=== PATIENT | female | born 1975 | race Caucasian/White ===

== ENCOUNTER 2016-10-18 11:00 | Emergency (ER) | payer OTHER ==
[~2016-10-18] VITALS: Ht 162.6 cm; Wt 83.2 kg
[~2016-10-18 11:00] MED LIST: ACET500T68 PO; CITA20TA5 PO; HYDR-971 PO; NAPR500T3 PO; ONDA4TAB10 SL; SUMA50TA3 PO; TRAZ50TA15 PO
--- NOTE | 2016-10-18 11:18 | PHYS DOC ---
Past History Past Medical History: Anxiety, Depression, Migraines, Other Past Surgical History: Other Smoking: Less than 1pk/day Alcohol Use: None Drug Use: Marijuana, Methamphetamine Adult General Chief Complaint Chief Complaint: ABDOMINAL PAIN HPI HPI Patient is a 41-year-old female who presents with abdominal pain nausea vomiting diarrhea for the past 3 days. Patient denies any fevers. Patient denies any chest pain or shortness of breath. Patient states her abdominal pain is epigastric and right upper quadrant pain. Patient denies any previous abdominal surgeries. Patient denies that she is . LMP was last month. Patient is actively vomiting in the emergency room. Patient has no other complaints. Pertinent exam findings TTP right upper quadrant with rebound tenderness and TTP to epigastric ED course: Patient was seen and evaluated upon arrival to the emergency room CBC, CMP, lipase, ultrasound the right upper quadrant, UA and urine Margie ordered. Pt was given formula grams of Zofran and 50 mg of fentanyl and 1 L normal saline bolus. 1248: Discussed lab results and ultrasound results with the patient who is feeling much better. Explained to the patient that she could still have gallbladder dysfunction or an ulcer and recommended follow up with PCP in one to 2 days for further evaluation. Recommended possible outpatient HIDA scan and upper EGD to further evaluate her right upper quadrant epigastric pain. Patient is comfortable being discharged home. Pertinent findings: Ultrasound gallbladder unremarkable MMD: After reviewing the chart, CBC/history of present illness/PHM, lab results, radiological results I do not believe the patient has intra-abdominal emergency or urgent further workup and admission at this time. Given the patient's right upper quadrant pain with unremarkable lab work and normal ultrasound I do not think a CT scan of abdomen and pelvis is warranted at this time. I recommend the patient follow up with her PCP for outpatient HIDA scan and possibly EGD. Patient is comfortable going home. On reexamination patient feels much better. Patient is stable for discharge. Additional verbal discharge instructions were provided to the patient and that if symptoms get worse or any new symptoms arise that are worrisome to the patient she is to return to the emergency room immediately. Review of Systems Review of Systems Constitutional: Denies fever or chills [] Eyes: Denies change in visual acuity, redness, or eye pain [] HENT: Denies nasal congestion or sore throat [] Respiratory: Denies cough or shortness of breath [] Cardiovascular: No additional information not addressed in HPI [] GI: Abdominal pain positive N/V : Denies dysuria or hematuria [] Musculoskeletal: Denies back pain or joint pain [] Integument: Denies rash or skin lesions [] Allergies Allergies Allergies Coded Allergies Type Severity Reaction Last Updated Verified doxycycline Allergy Severe Hives 11/27/15 Yes aspirin Allergy Intermediate hives 07/23/15 Yes ibuprofen Allergy Intermediate hives 07/23/15 Yes Physical Exam Physical Exam Constitutional: Well developed, well nourished, no acute distress, non-toxic appearance. [] HENT: Normocephalic, atraumatic, bilateral external ears normal, oropharynx moist, no oral exudates, nose normal. [] Eyes: PERRLA, EOMI, conjunctiva normal, no discharge. [] Neck: Normal range of motion, no tenderness, supple, no stridor. [] Cardiovascular:Heart rate regular rhythm, no murmur [] Lungs & Thorax: Bilateral breath sounds clear to auscultation [] Abdomen: Bowel sounds normal, soft, positive TTP to right upper quadrant and epigastric with rebound tenderness, no masses, no pulsatile masses. [] Skin: Warm, dry, no erythema, no rash. [] Back: No tenderness, no CVA tenderness. [] Extremities: No tenderness, no cyanosis, no clubbing, ROM intact, no edema. [] Neurologic: Alert and oriented X 3, normal motor function, normal sensory function, no focal deficits noted. [] Psychologic: Affect normal, judgement normal, mood normal. [] Current Patient Data Lab Results Laboratory Tests Test 10/18/16 11:24 10/18/16 11:26 White Blood Count 8.9 x10^3/uL Red Blood Count 4.68 x10^6/uL Hemoglobin 14.1 g/dL Hematocrit 41.2 % Mean Corpuscular Volume 88 fL Mean Corpuscular Hemoglobin 30 pg Mean Corpuscular Hemoglobin Concent 34 g/dL Red Cell Distribution Width 13.5 % Platelet Count 305 x10^3/uL Neutrophils (%) (Auto) 62 % Lymphocytes (%) (Auto) 30 % Monocytes (%) (Auto) 7 % Eosinophils (%) (Auto) 1 % Basophils (%) (Auto) 0 % Neutrophils # (Auto) 5.6 x10^3uL Lymphocytes # (Auto) 2.7 x10^3/uL Monocytes # (Auto) 0.6 x10^3/uL Eosinophils # (Auto) 0.1 x10^3/uL Basophils # (Auto) 0.0 x10^3/uL Sodium Level 138 mmol/L Potassium Level 3.8 mmol/L Chloride Level 102 mmol/L Carbon Dioxide Level 26 mmol/L Anion Gap 10 Blood Urea Nitrogen 15 mg/dL Creatinine 1.0 mg/dL Estimated GFR (Cockcroft-Gault) 61.7 BUN/Creatinine Ratio 15 Glucose Level 112 mg/dL Calcium Level 8.5 mg/dL Total Bilirubin 0.2 mg/dL Aspartate Amino Transf (AST/SGOT) 16 U/L Alanine Aminotransferase (ALT/SGPT) 21 U/L Alkaline Phosphatase 67 U/L Total Protein 7.6 g/dL Albumin 3.8 g/dL Albumin/Globulin Ratio 1.0 Lipase 110 U/L Bedside Urine HCG, Qualitative hcg negative Current Medications Medications (Trade) Dose Ordered Sig/Luis Manuel Route PRN Reason Start Time Stop Time Status Last Admin Dose Admin Sodium Chloride 1,000 ml @ 1,000 mls/hr 1X ONCE IV 10/18/16 11:30 10/18/16 12:29 10/18/16 11:30 Ondansetron HCl (Zofran) 4 mg 1X ONCE IV 10/18/16 11:30 10/18/16 11:31 DC 10/18/16 11:30 Fentanyl Citrate (Fentanyl 2ml Vial) 50 mcg 1X ONCE IM 10/18/16 11:30 10/18/16 11:31 DC 10/18/16 11:30 Fentanyl Citrate (Fentanyl 2ml Vial) 50 mcg 1X ONCE IM 10/18/16 12:30 10/18/16 12:31 Metoclopramide HCl (Reglan) 10 mg 1X ONCE IV 10/18/16 12:30 10/18/16 12:31 EKG EKG [] Radiology/Procedures Radiology/Procedures Laboratory Tests Test 10/18/16 11:24 10/18/16 11:26 White Blood Count 8.9 x10^3/uL (4.0-11.0) Red Blood Count 4.68 x10^6/uL (3.50-5.40) Hemoglobin 14.1 g/dL (12.0-15.5) Hematocrit 41.2 % (36.0-47.0) Mean Corpuscular Volume 88 fL (79-100) Mean Corpuscular Hemoglobin 30 pg (25-35) Mean Corpuscular Hemoglobin Concent 34 g/dL (31-37) Red Cell Distribution Width 13.5 % (11.5-14.5) Platelet Count 305 x10^3/uL (140-400) Neutrophils (%) (Auto) 62 % (31-73) Lymphocytes (%) (Auto) 30 % (24-48) Monocytes (%) (Auto) 7 % (0-9) Eosinophils (%) (Auto) 1 % (0-3) Basophils (%) (Auto) 0 % (0-3) Neutrophils # (Auto) 5.6 x10^3uL (1.8-7.7) Lymphocytes # (Auto) 2.7 x10^3/uL (1.0-4.8) Monocytes # (Auto) 0.6 x10^3/uL (0.0-1.1) Eosinophils # (Auto) 0.1 x10^3/uL (0.0-0.7) Basophils # (Auto) 0.0 x10^3/uL (0.0-0.2) Sodium Level 138 mmol/L (136-145) Potassium Level 3.8 mmol/L (3.5-5.1) Chloride Level 102 mmol/L (98-107) Carbon Dioxide Level 26 mmol/L (21-32) Anion Gap 10 (6-14) Blood Urea Nitrogen 15 mg/dL (7-20) Creatinine 1.0 mg/dL (0.6-1.0) Estimated GFR (Cockcroft-Gault) 61.7 BUN/Creatinine Ratio 15 (6-20) Glucose Level 112 mg/dL (70-99) Calcium Level 8.5 mg/dL (8.5-10.1) Total Bilirubin 0.2 mg/dL (0.2-1.0) Aspartate Amino Transf (AST/SGOT) 16 U/L (15-37) Alanine Aminotransferase (ALT/SGPT) 21 U/L (14-59) Alkaline Phosphatase 67 U/L (46-116) Total Protein 7.6 g/dL (6.4-8.2) Albumin 3.8 g/dL (3.4-5.0) Albumin/Globulin Ratio 1.0 (1.0-1.7) Lipase 110 U/L (73-393) Bedside Urine HCG, Qualitative hcg negative (Negative) Laboratory Tests Test 10/18/16 11:24 10/18/16 11:26 White Blood Count 8.9 x10^3/uL (4.0-11.0) Red Blood Count 4.68 x10^6/uL (3.50-5.40) Hemoglobin 14.1 g/dL (12.0-15.5) Hematocrit 41.2 % (36.0-47.0) Mean Corpuscular Volume 88 fL (79-100) Mean Corpuscular Hemoglobin 30 pg (25-35) Mean Corpuscular Hemoglobin Concent 34 g/dL (31-37) Red Cell Distribution Width 13.5 % (11.5-14.5) Platelet Count 305 x10^3/uL (140-400) Neutrophils (%) (Auto) 62 % (31-73) Lymphocytes (%) (Auto) 30 % (24-48) Monocytes (%) (Auto) 7 % (0-9) Eosinophils (%) (Auto) 1 % (0-3) Basophils (%) (Auto) 0 % (0-3) Neutrophils # (Auto) 5.6 x10^3uL (1.8-7.7) Lymphocytes # (Auto) 2.7 x10^3/uL (1.0-4.8) Monocytes # (Auto) 0.6 x10^3/uL (0.0-1.1) Eosinophils # (Auto) 0.1 x10^3/uL (0.0-0.7) Basophils # (Auto) 0.0 x10^3/uL (0.0-0.2) Sodium Level 138 mmol/L (136-145) Potassium Level 3.8 mmol/L (3.5-5.1) Chloride Level 102 mmol/L (98-107) Carbon Dioxide Level 26 mmol/L (21-32) Anion Gap 10 (6-14) Blood Urea Nitrogen 15 mg/dL (7-20) Creatinine 1.0 mg/dL (0.6-1.0) Estimated GFR (Cockcroft-Gault) 61.7 BUN/Creatinine Ratio 15 (6-20) Glucose Level 112 mg/dL (70-99) Calcium Level 8.5 mg/dL (8.5-10.1) Total Bilirubin 0.2 mg/dL (0.2-1.0) Aspartate Amino Transf (AST/SGOT) 16 U/L (15-37) Alanine Aminotransferase (ALT/SGPT) 21 U/L (14-59) Alkaline Phosphatase 67 U/L (46-116) Total Protein 7.6 g/dL (6.4-8.2) Albumin 3.8 g/dL (3.4-5.0) Albumin/Globulin Ratio 1.0 (1.0-1.7) Lipase 110 U/L (73-393) Bedside Urine HCG, Qualitative hcg negative (Negative) Right upper quadrant abdominal ultrasound, 10/18/2016: History: Right upper quadrant pain and vomiting The gallbladder is within normal limits in size. There is no sonographic evidence of cholelithiasis. The gallbladder wall is not thickened. No bile duct dilatation is seen. The visualized portions of the liver, pancreas and right kidney are unremarkable. IMPRESSION: No significant gallbladder abnormality is detected. [] Course & Med Decision Making Course & Med Decision Making Pertinent Labs and Imaging studies reviewed. (See chart for details) [] Dragon Disclaimer Dragon Disclaimer This chart was dictated in whole or in part using Voice Recognition software in a busy, high-work load, and often noisy Emergency Department environment. It may contain unintended and wholly unrecognized errors or omissions. Departure Departure: Disposition: 01 HOME, SELF-CARE Condition: IMPROVED Referrals: PCP,NO (PCP) CHARO MUSE MD Patient Instructions: Abdominal Pain, Biliary Colic Additional Instructions: Least follow-up her family doctor in one to 2 days to discuss the need for HIDA scan and upper EGD. Scripts Ondansetron (ZOFRAN ODT) 4 Mg Tab.rapdis 1 TAB SL Q8HRS, #10 TAB Prov: NADINE STARK DO 10/18/16 NADINE STARK DO October 18, 2016 11:17
[2016-10-18] MEDS ORDERED: fentaNYL PF 100 MCG/2 ML VIAL IM ONE ×2 (11:30→12:30)
[2016-10-18] MEDS ORDERED: ONDANSETRON PF 4 MG/2 ML VIAL. IV ONE (11:30)
[2016-10-18] MEDS ORDERED: IV NORMAL SALINE 1,000ML 1,000 ML IV ONE (11:30)
[2016-10-18 11:40] LABS: BASO % 0 % (0-3); EOS # 0.1 x10^3/uL (0.0-0.7); EOS % 1 % (0-3); HEMATOCRIT 41.2 % (36.0-47.0); HEMOGLOBIN 14.1 g/dL (12.0-15.5); LYMPH # 2.7 x10^3/uL (1.0-4.8); LYMPH % 30 % (24-48); MEAN CORPUSCULAR HEMOGLOBIN 30 pg (25-35); MEAN CORPUSCULAR HGB CONC 34 g/dL (31-37); MEAN CORPUSCULAR VOLUME 88 fL (79-100); MONO # 0.6 x10^3/uL (0.0-1.1); MONO % 7 % (0-9); NEUT # 5.6 x10^3uL (1.8-7.7); NEUT % 62 % (31-73); PLATELET COUNT 305 x10^3/uL (140-400); RED BLOOD COUNT 4.68 x10^6/uL (3.50-5.40); RED CELL DISTRIBUTION WIDTH 13.5 % (11.5-14.5); WHITE BLOOD COUNT 8.9 x10^3/uL (4.0-11.0)
[2016-10-18 11:52] LABS: ALBUMIN 3.8 g/dL (3.4-5.0); CALCIUM 8.5 mg/dL (8.5-10.1); GFR 61.7; POTASSIUM 3.8 mmol/L (3.5-5.1); TOTAL BILIRUBIN 0.2 mg/dL (0.2-1.0); TOTAL PROTEIN 7.6 g/dL (6.4-8.2)
--- NOTE | 2016-10-18 12:08 | RAD ---
Right upper quadrant abdominal ultrasound, 10/18/2016: History: Right upper quadrant pain and vomiting The gallbladder is within normal limits in size. There is no sonographic evidence of cholelithiasis. The gallbladder wall is not thickened. No bile duct dilatation is seen. The visualized portions of the liver, pancreas and right kidney are unremarkable. IMPRESSION: No significant gallbladder abnormality is detected.
[2016-10-18] MEDS ORDERED: METOCLOPRAMIDE HCL 10 MG/2 ML VIAL. IV ONE (12:30)
[2016-10-18] MEDS ORDERED: ONDA4TAB10 SL (12:55)
[2016-10-18 13:19] VITALS: BP 134/65
[2016-10-18 14:50] LABS: BILIRUBIN,URINE NEG (NEG); CLARITY,URINE CLOUDY; COLOR,URINE YELLOW; NITRITE,URINE NEG (NEG); UROBILINOGEN,URINE 1 mg/dL (0.2 mg/dL)
[2016-10-18 14:51] LABS: GLUCOSE,URINE NEG (NEG)
== END 2016-10-18 13:20 | disposition home or self-care (01) ==
LOC: ER 11:00
DX: K80.50 Calculus of bile duct without cholangitis or cholecystitis without obstruction (principal); R19.7 Diarrhea, unspecified; F41.9 Anxiety disorder, unspecified; F32.9 Major depressive disorder, single episode, unspecified; F17.200 Nicotine dependence, unspecified, uncomplicated; F12.10 Cannabis abuse, uncomplicated; F15.10 Other stimulant abuse, uncomplicated; G43.909 Migraine, unspecified, not intractable, without status migrainosus; Z88.1 Allergy status to other antibiotic agents; Z88.6 Allergy status to analgesic agent
CPT/HCPCS: 36415; 76705; 80053; 81003; 81025; 83690; 85027; 96361; 96372; 96374; 99285; J2405; J2765; J3010; J7030

== ENCOUNTER → 2016-12-20 | Outpatient (CLI) | payer OTHER ==
--- NOTE | 2016-12-20 11:28 | RAD ---
Cervical spine, 2 views, 12/20/2016: History: Neck pain, possible cervical mass There is slight reversal of the normal cervical lordosis. No fracture or destructive bony lesion is seen. The intervertebral disc spaces are well preserved. There are mild degenerative changes involving scattered facet joints bilaterally. The prevertebral soft tissues are unremarkable. IMPRESSION: 1. Mild degenerative change. 2. Slight reversal of the normal cervical lordosis. 3. No acute bony abnormality is detected.
== END | disposition home or self-care (01) ==
LOC: DXRADRC 10:26
PROVIDERS: ATTEND General Practice
DX: N88.8 Other specified noninflammatory disorders of cervix uteri (principal); M47.892 Other spondylosis, cervical region
CPT/HCPCS: 72040

== ENCOUNTER 2017-02-28 21:33 | Emergency (ER) | payer OTHER ==
[~2017-02-28] VITALS: Ht 162.6 cm; Wt 78.4 kg
[~2017-02-28 21:33] MED LIST changes: -NAPR500T3 PO; +NAPR500T4 PO
--- NOTE | 2017-02-28 22:27 | PHYS DOC ---
Past History Past Medical History: No Pertinent History Past Surgical History: No Surgical History Smoking: Less than 1pk/day Alcohol Use: None Drug Use: None Adult General Chief Complaint Chief Complaint: GROIN PAIN [facility] HPI Patient is a 41 year old female who presents with right inguinal pain. She states it started on Sunday she tried to be seen and and [facility] but got frustrated and left. She states pains worse when she tries to walk. She states that she lay still there is no pain or discomfort. She denies any nausea vomiting or leg pain. She points right triangular canals states she feels a bump. She states she's been taking Tylenol without any relief. Review of Systems Review of Systems Constitutional: Denies fever or chills [] Eyes: Denies change in visual acuity, redness, or eye pain [] HENT: Denies nasal congestion or sore throat [] Respiratory: Denies cough or shortness of breath [] Cardiovascular: No additional information not addressed in HPI [] GI: Denies abdominal pain, nausea, vomiting, bloody stools or diarrhea [] : Denies dysuria or hematuria [] Musculoskeletal: Denies back pain or joint pain [] Integument: Denies rash or skin lesions [] Neurologic: Denies headache, focal weakness or sensory changes [] Endocrine: Denies polyuria or polydipsia [] Allergies Allergies Allergies Coded Allergies Type Severity Reaction Last Updated Verified doxycycline Allergy Severe Hives 11/27/15 Yes aspirin Allergy Intermediate hives 07/23/15 Yes ibuprofen Allergy Intermediate hives 07/23/15 Yes Physical Exam Physical Exam Constitutional: Well developed, well nourished, no acute distress, non-toxic appearance. [] HENT: Normocephalic, atraumatic, bilateral external ears normal, oropharynx moist, no oral exudates, nose normal. [] Eyes: PERRLA, EOMI, conjunctiva normal, no discharge. [] Neck: Normal range of motion, no tenderness, supple, no stridor. [] Cardiovascular:Heart rate regular rhythm, no murmur [] Lungs & Thorax: Bilateral breath sounds clear to auscultation [] Abdomen: Bowel sounds normal, soft, no tenderness, no masses, no pulsatile masses. [] Skin: Warm, dry, no erythema, no rash. [] Back: No tenderness, no CVA tenderness. [] Extremities: Tender to palpation over the right inguinal canal, no masses appreciated, dorsal pedis pulse 2+ in the right lower extremity, strength 5 out of 5 with flexion and extension of the hip, knee, ankle, no tenderness within the hip joint itself with passive range of motion and internal/external rotation , no cyanosis, no clubbing, ROM intact, no edema. [] Neurologic: Alert and oriented X 3, normal motor function, normal sensory function, no focal deficits noted. [] Psychologic: Affect normal, judgement normal, mood normal. [] EKG EKG [] Radiology/Procedures Radiology/Procedures [address] [address] IMAGING REPORT Signed PATIENT: OFE JOSEPH ACCOUNT: [id number] : 1975 LOCATION: ER AGE: 41 SEX: F EXAM STATUS: DEP ER ORD. PHYSICIAN: ORAL MONTOYA MD REASON: pain over right inginual area PROCEDURE: VENOUS LOWER EXTREMITY RIGHT Right lower extremity venous Doppler: Reason for examination: Right groin pain. The right lower extremity venous system was evaluated from the common femoral and greater saphenous veins distally to the calf veins with grayscale imaging, color-flow imaging and spectral analysis. There appears to be normal blood flow without deep venous thrombosis. There is normal response of the venous system to compression and augmentation. IMPRESSION: No deep venous thrombosis evident in the right lower extremity. Electronically signed by: Sowmya Gulilen MD (03/01/2017 1:07 AM) [facility] [id number] DICTATED AND SIGNED BY: SOWMYA GUILLEN MD DATE: 03/01/17 0106 CC: ORAL MONTOYA MD; CINDY MORALES MD ~ Impressions: Right groin pain Course & Med Decision Making Course & Med Decision Making Pertinent Labs and Imaging studies reviewed. (See chart for details) Preliminary report from the os intact shows no DVT and no lymphadenopathy. We' ll treat urinary tract infection with Bactrim and start a dose here and it for 5 days. Perhaps she does have a cellulitis and some lymph nodes that irritated or other concerns that Bactrim would help with. She's to follow-up with her primary care physician, return precautions given. She also being discharged with 14 tablets of Berlin. She is instructed not to drive or drink alcohol while taking this medicine as it can impair judgment and make her sleepy. Dragon Disclaimer Dragon Disclaimer This chart was dictated in whole or in part using Voice Recognition software in a busy, high-work load, and often noisy Emergency Department environment. It may contain unintended and wholly unrecognized errors or omissions. Departure Departure: Impression: Primary Impression: Right groin pain Disposition: HOME, SELF-CARE Condition: STABLE Referrals: CINDY MORALES MD (PCP) Patient Instructions: Groin Strain Additional Instructions: I'm not sure why you're having pain in your groin. The preliminary report from the ultrasound did not show any kind of blood clots. It also did not show any enlarged lymph nodes or other concerns. You have a bladder infection which could cause some discomfort. You will need take antibiotics for the next 3 days. You can take Berlin which is a narcotic pain medicine as needed for the next few days. Her pain should get better if it does not please return back to ER or follow-up with your primary care physician. Scripts Hydrocodone Bit/Acetaminophen (NORCO 5-325 TABLET) 1 Each Tablet 1-2 TAB PO PRN Q6HRS Y for PAIN, #14 TAB 0 Refills Prov: ORAL MONTOYA MD 03/01/17 Sulfamethoxazole/Trimethoprim (BACTRIM DS TABLET) 1 Each Tablet 1 TAB PO BID, #10 TAB Prov: ORAL MONTOYA MD 03/01/17 ORAL MONTOYA MD Feb 28, 2017 22:27
[2017-02-28] MEDS ORDERED: HYDROcodone/APAP 5/325MG 1 TAB TABLET PO ONE (23:30)
[2017-02-28 23:46] LABS: BILIRUBIN,URINE NEG (NEG); CLARITY,URINE HAZY; COLOR,URINE STRAW; GLUCOSE,URINE NEG (NEG); NITRITE,URINE NEG (NEG); RBC,URINE OCC /HPF (0-2); UROBILINOGEN,URINE 0.2 mg/dL (0.2 mg/dL)
[2017-02-28 23:47] LABS: BACTERIA,URINE FEW /HPF (0-FEW); SQUAMOUS EPITHELIAL CELL,UR MOD /LPF; WBC,URINE OCC /HPF (0-4)
[2017-03-01] MEDS ORDERED: SULF1TAB24 PO (00:16)
[2017-03-01] MEDS ORDERED: HYDR-971 PO (00:16)
[2017-03-01] MEDS ORDERED: SMZ/TMP 800/160MG TABLET. PO ONE ×2 (00:19→00:30)
[2017-03-01 00:20] VITALS: BP 128/66
--- NOTE | 2017-03-01 01:10 | RAD ---
Right lower extremity venous Doppler: Reason for examination: Right groin pain. The right lower extremity venous system was evaluated from the common femoral and greater saphenous veins distally to the calf veins with grayscale imaging, color-flow imaging and spectral analysis. There appears to be normal blood flow without deep venous thrombosis. There is normal response of the venous system to compression and augmentation. IMPRESSION: No deep venous thrombosis evident in the right lower extremity. Electronically signed by: Sowmya Belcher MD (03/01/2017 1:07 AM) [facility]
== END 2017-03-01 00:24 | disposition home or self-care (01) ==
LOC: ER 21:33
DX: R10.31 Right lower quadrant pain (principal); N39.0 Urinary tract infection, site not specified; F17.200 Nicotine dependence, unspecified, uncomplicated; Z88.1 Allergy status to other antibiotic agents; Z88.6 Allergy status to analgesic agent
CPT/HCPCS: 81001; 81025; 93971; 99285-25

== ENCOUNTER 2017-10-24 18:32 | Emergency (ER) | payer SELFPAY ==
[~2017-10-24] VITALS: Ht 160 cm; Wt 63.5 kg
[2017-10-24 18:32] VITALS: BP 111/71
[~2017-10-24 18:32] MED LIST changes: -CITA20TA5 PO; +CITA20TA6 PO; +NAPR-514 PO; -NAPR500T4 PO; +SULF1TAB24 PO
[2017-10-24] MEDS ORDERED: AZIT500T PO (18:47)
[2017-10-24] MEDS ORDERED: HYDR15SO4 PO (18:49)
[2017-10-24] MEDS ORDERED: BENZ100C PO (18:49)
--- NOTE | 2017-10-24 18:59 | ED.ADGEN ---
Past History Past Medical History: Anxiety, Depression, Other Past Surgical History: No Surgical History Smoking: Less than 1pk/day Alcohol Use: None Drug Use: Marijuana Adult General [facility] HPI Patient is a 42 year old female who presents with cough. Patient has had some upper respiratory symptoms over the last 2 days. She has had a predominantly a cough. She does have some post tussive emesis as well. She has not had a fever. She complains of bilateral ear pain. She had an episode at work today when she was coughing so hard that she throughout. Her employer made her leave work and come to the emergency room. She is otherwise healthy. She has not taken any over -the-counter medications for symptom relief. Review of Systems Review of Systems Constitutional: Denies fever or chills Eyes: Denies change in visual acuity, redness, or eye pain HENT: + nasal congestion and bilateral ear pain, popping Respiratory: Denies cough Cardiovascular: No additional information not addressed in HPI GI: Denies abdominal pain, nausea : Denies dysuria or hematuria Musculoskeletal: Denies back pain Integument: Denies rash or skin lesions Neurologic: Denies headache, focal weakness or sensory changes Endocrine: Denies polyuria or polydipsia All other systems were reviewed and found to be within normal limits, except as documented in this note. Allergies Allergies Allergies Coded Allergies Type Severity Reaction Last Updated Verified doxycycline Allergy Severe Hives 11/27/15 Yes aspirin Allergy Intermediate hives 07/23/15 Yes ibuprofen Allergy Intermediate hives 07/23/15 Yes Physical Exam Physical Exam Constitutional: Well developed, well nourished, no acute distress, non-toxic appearance. HENT: Normocephalic, atraumatic, bilateral external ears normal, oropharynx moist, no oral exudates, nose normal. dull, erythematous right TM. Left is not visulalized 2/2 cerumen impaction Eyes: PERRLA, EOMI, conjunctiva normal Neck: Normal range of motion, no tenderness Cardiovascular:Heart rate regular rhythm, no murmur Lungs & Thorax: Bilateral breath sounds clear to auscultation Abdomen: Bowel sounds normal, soft, no tenderness, no masses Skin: Warm, dry, no erythema, no rash. Back: No tenderness, no CVA tenderness. Extremities: No tenderness, no cyanosis, no clubbing, ROM intact, no edema. Neurologic: Alert and oriented X 3, normal motor function, normal sensory function, no focal deficits noted. Psychologic: Affect normal, judgement normal, mood normal. Current Patient Data Vital Signs Vital Signs Date Time Temp Pulse Resp B/P (MAP) Pulse Ox O2 Delivery O2 Flow Rate FiO2 10/24/17 18:32 98.3 97 20 97 Room Air EKG EKG [] Radiology/Procedures Radiology/Procedures [] Course & Med Decision Making Course & Med Decision Making Pertinent Labs and Imaging studies reviewed. (See chart for details) Patient is seen and examined. She is void of emergency complaints. She has some positive findings on her ear exam as documented above. She is coughing during the interview. Plan will be to discharge home with medications for symptom relief. Patient is agreeable to this plan of care. She is provided a work note. Encouraged follow-up with her primary care doctor. Final Impression Final Impression Viral syndrome most likely Intractable cough Post-tussive emesis Otitis Dragon Disclaimer Dragon Disclaimer This electronic medical record was generated, in whole or in part, using a voice recognition dictation system. SHAMIKA CAVAZOS DO October 24, 2017 18:59
== END 2017-10-24 18:55 | disposition home or self-care (01) ==
LOC: ER 18:32
DX: H66.93 Otitis media, unspecified, bilateral (principal); R11.10 Vomiting, unspecified; F17.200 Nicotine dependence, unspecified, uncomplicated; F12.10 Cannabis abuse, uncomplicated; Z88.1 Allergy status to other antibiotic agents; Z88.6 Allergy status to analgesic agent
CPT/HCPCS: 99283

== ENCOUNTER 2017-12-29 20:33 | Emergency (ER) | payer SELFPAY ==
[~2017-12-29] VITALS: Ht 162.6 cm; Wt 78.1 kg
[~2017-12-29 20:33] MED LIST changes: +AZIT500T PO; +BENZ100C PO; +HYDR15SO4 PO; +TRAZ-85 PO; -TRAZ50TA15 PO
[2017-12-29 20:43] VITALS: BP 122/71
--- NOTE | 2017-12-29 20:46 | PHYS DOC ---
Past History Past Medical History: Anxiety, Depression, Other Past Surgical History: No Surgical History Smoking: Less than 1pk/day Alcohol Use: None Drug Use: Marijuana Adult General Chief Complaint Chief Complaint: Toe pain/swelling HPI HPI 42-year-old female presents with report of middle toe pain/swelling/bruising which occurred after accidentally striking it on her nieces ankle when they ran into each other yesterday. Reports continued swelling and bruising and therefore presents to the ER for evaluation. Denies . Review of Systems Review of Systems Constitutional: Denies fever or chills [] Musculoskeletal: Reports pain to left middle toe swelling Integument: Ports ecchymosis, denies lacerations[] Neurologic: Denies focal weakness or sensory changes [] Complete systems were reviewed and found to be within normal limits, except as documented in this note. Allergies Allergies Allergies Coded Allergies Type Severity Reaction Last Updated Verified doxycycline Allergy Severe Hives 11/27/15 Yes aspirin Allergy Intermediate hives 07/23/15 Yes ibuprofen Allergy Intermediate hives 07/23/15 Yes Physical Exam Physical Exam Constitutional: Well developed, well nourished, no acute distress, HENT: Normocephalic, atraumatic, Eyes: EOMI, conjunctiva normal, Cardiovascular: DP and PT pulses +2 bilaterally, cap refill less than 2 seconds Lungs & Thorax: No respiratory distress noted Skin: Warm, dry, ecchymosis noted to distal aspect of left third toe Extremities: No deformity noted, tenderness to left middle toe Neurologic: Alert and oriented X 3, normal motor function, normal sensory function, Psychologic: Affect normal, judgement normal, mood normal. [] EKG EKG [] Radiology/Procedures Radiology/Procedures XR left toes: Preliminary interpretation by ED physician: NO acute fracture or dislocation. Course & Med Decision Making Course & Med Decision Making Pertinent Labs and Imaging studies reviewed. (See chart for details) Patient presents with report of left middle toe pain and swelling after blunt trauma. X-ray obtained without fracture or dislocation. Ice applied. Postop shoe applied. Patient stable for discharge with outpatient follow-up with PCP. Discussed findings and plan with patient and family, who acknowledge understanding and agreement. Patient request work excuse for 12/31 - which was provided. Radha Disclaimer Radha Disclaimer This electronic medical record was generated, in whole or in part, using a voice recognition dictation system. Departure Departure: Impression: Primary Impression: Sprain of toe, third, left Disposition: 01 HOME, SELF-CARE Condition: STABLE Referrals: PCP,NO (PCP) Patient Instructions: Hard-Soled Shoe, Turf Toe Additional Instructions: Take over the counter Aleve and/or Tylenol for pain control. Problem Qualifiers Primary Impression: Sprain of toe, third, left Encounter type: initial encounter Qualified Codes: S93.505A - Unspecified sprain of left lesser toe(s), initial encounter LEE PAREKH DO Dec 29, 2017 20:46
--- NOTE | 2017-12-29 21:33 | RAD ---
Examination: 3 views of the third toe HISTORY: History of swelling in the medial to, injury COMPARISON: None available Findings/ impression: There is no obvious acute fracture identified. The alignment of the proximal, distal interphalangeal joints grossly appears unremarkable on the AP, oblique view. Limited evaluation of the lateral view due to overlapping of toes. Electronically signed by: Terrence Olson MD (12/29/2017 9:29 PM) [facility]
== END 2017-12-29 21:12 | disposition home or self-care (01) ==
LOC: ER 20:33
DX: S93.505A Unspecified sprain of left lesser toe(s), initial encounter (principal); F17.200 Nicotine dependence, unspecified, uncomplicated; Z88.1 Allergy status to other antibiotic agents; Z88.6 Allergy status to analgesic agent; W50.0XXA Accidental hit or strike by another person, initial encounter; Y93.89 Activity, other specified; Y92.89 Other specified places as the place of occurrence of the external cause; Y99.8 Other external cause status
CPT/HCPCS: 73660; 99284

== ENCOUNTER 2018-02-19 16:11 | Emergency (ER) | payer SELFPAY ==
[~2018-02-19] VITALS: Ht 162.6 cm; Wt 68.0 kg
[2018-02-19] MEDS ORDERED: IPRATRPIUM/ALBUTEROL 0.5/2.5MG 3 ML NEBU. ONE (16:16)
[2018-02-19] MEDS ORDERED: HYDROcodone/APAP 5/325MG 1 TAB TABLET PO ONE (16:30)
[2018-02-19] MEDS ORDERED: ONDANSETRON ODT 4 MG TAB.RAPDIS PO ONE (16:30)
[2018-02-19] MEDS ORDERED: predniSONE 10 MG TABLET PO ONE (16:30)
--- NOTE | 2018-02-19 16:36 | ED.ADGEN ---
Past History Past Medical History: No Pertinent History Past Surgical History: No Surgical History Smoking: Less than 1pk/day Alcohol Use: None Drug Use: None Adult General Chief Complaint Chief Complaint Shortness of breath, cough HPI HPI Patient is a 42-year-old female presents with productive cough with chest tightness and wheezing for the past 2 days. No fever, chills, nausea vomiting sweats. Does report nausea and chest wall pain with deep cough. No other acute symptoms or complaints. Patient has not taken any medications or treatments prior to ED arrival. Denies history of asthma, or COPD. Patient is a current smoker. [] Review of Systems Review of Systems Review symptoms as per history of present illness. All other review symptoms are negative. All other systems were reviewed and found to be within normal limits, except as documented in this note. Current Medications Current Medications Current Medications Medications (Trade) Dose Ordered Sig/Luis Manuel Start Time Stop Time Status Last Admin Dose Admin Acetaminophen/ Hydrocodone Bitart (Lortab 5/325) 1 tab 1X ONCE 02/19/18 16:30 02/19/18 16:31 UNV Albuterol/ Ipratropium (Duoneb) 3 ml STK-MED ONCE 02/19/18 16:16 02/19/18 16:17 DC Ondansetron HCl (Zofran Odt) 4 mg 1X ONCE 02/19/18 16:30 02/19/18 16:31 UNV Prednisone (Prednisone) 50 mg 1X ONCE 02/19/18 16:30 02/19/18 16:31 UNV Allergies Allergies Allergies Coded Allergies Type Severity Reaction Last Updated Verified doxycycline Allergy Severe Hives 11/27/15 Yes aspirin Allergy Intermediate hives 07/23/15 Yes ibuprofen Allergy Intermediate hives 07/23/15 Yes Physical Exam Physical Exam Constitutional: Well developed, well nourished, no acute distress, non-toxic appearance. [] HENT: Normocephalic, atraumatic, bilateral external ears normal, oropharynx moist, no oral exudates, nose normal. [] Eyes: PERRLA, EOMI, conjunctiva normal, no discharge. [] Neck: Normal range of motion, no tenderness, supple, no stridor. [] Cardiovascular: Regular rate and rhythm.[] Lungs & Thorax: Respirations nonlabored, coarse breath sounds bilaterally with occasional expiratory wheeze.[] Abdomen: Bowel sounds normal, soft, no tenderness, no masses, no pulsatile masses. [] Neurologic: Alert and oriented X 3, normal motor function, normal sensory function, no focal deficits noted. [] Psychologic: Affect normal, judgement normal, mood normal. [] EKG EKG [] Radiology/Procedures Radiology/Procedures [] Course & Med Decision Making Course & Med Decision Making Pertinent Labs and Imaging studies reviewed. (See chart for details) [Patient is not hypoxic. No respiratory distress, Coarse breath sounds bilaterally, improved with treatment. We'll continue treatment with PCP follow- up. Return cautions reviewed. ] Final Impression Final Impression [#1 acute bronchitis with bronchospasm] Dragon Disclaimer Dragon Disclaimer This electronic medical record was generated, in whole or in part, using a voice recognition dictation system. MELISSA JOHNSON DO Feb 19, 2018 16:36
[2018-02-19] MEDS ORDERED: PRED50TA PO (16:39)
[2018-02-19] MEDS ORDERED: ALBU8.5H8 INH (16:39)
[2018-02-19] MEDS ORDERED: HYDR-971 PO (16:39)
[2018-02-19] MEDS ORDERED: CEPH-264 PO (16:39)
[2018-02-19 16:56] VITALS: BP 126/83
[2018-02-19] MEDS ORDERED: IPRATRPIUM/ALBUTEROL 0.5/2.5MG 3 ML NEBU. NEB ONE (17:00)
== END 2018-02-19 17:09 | disposition home or self-care (01) ==
LOC: ER 16:11
DX: J20.9 Acute bronchitis, unspecified (principal); F17.200 Nicotine dependence, unspecified, uncomplicated; Z88.1 Allergy status to other antibiotic agents; Z88.6 Allergy status to analgesic agent
CPT/HCPCS: 94640; 99284; J7512; J7620; Q0162

== ENCOUNTER 2018-02-23 22:41 | Inpatient (IN) | payer SELFPAY ==
[~2018-02-23] VITALS: Ht 162.6 cm; Wt 84.5 kg
[~2018-02-23 22:41] MED LIST changes: +ALBU8.5H8 INH; +CEPH-264 PO; +PRED50TA PO
--- NOTE | 2018-02-23 22:44 | ED.ADGEN ---
Past History Past Medical History: No Pertinent History, Bronchitis, Pneumonia Past Surgical History: No Surgical History Smoking: Less than 1pk/day Alcohol Use: None Drug Use: None Adult General Chief Complaint Chief Complaint ".. I ve been on 5 days. ... of antibiotic. ....and I feel so much worse..." HPI HPI Patient is a 42 year old female who presents with above hx and complaints persisted wheezing and cough. Patient seen approximate 5 days ago started on Keflex and given MDI. Patient reports no improvement of symptoms. No recent travel. No specific ill contacts other than sister also has upper respiratory infection. Patient does smoke. No hx of immunosuppression. Review of Systems Review of Systems Constitutional: Denies fever or chills [] Eyes: Denies change in visual acuity, redness, or eye pain [] HENT: Denies nasal congestion or sore throat [] Respiratory: Denies cough or shortness of breath [] Cardiovascular: No additional information not addressed in HPI [] GI: Denies abdominal pain, nausea, vomiting, bloody stools or diarrhea [] : Denies dysuria or hematuria [] Musculoskeletal: Denies back pain or joint pain [] Integument: Denies rash or skin lesions [] Neurologic: Denies headache, focal weakness or sensory changes [] Endocrine: Denies polyuria or polydipsia [] All other systems were reviewed and found to be within normal limits, except as documented in this note. Family History Family History Noncontributory Current Medications Current Medications Current Medications Medications (Trade) Dose Ordered Sig/Luis Manuel Start Time Stop Time Status Last Admin Dose Admin Albuterol/ Ipratropium (Duoneb) 3 ml 1X ONCE 02/23/18 23:45 02/23/18 23:46 DC 02/23/18 23:42 3 ML Azithromycin (Zithromax) 500 mg 1X ONCE 02/23/18 23:45 02/23/18 23:46 DC 02/24/18 00:30 500 MG Ceftriaxone Sodium (Rocephin Im) 1 gm 1X ONCE 02/23/18 23:45 02/23/18 23:46 UNV Hydrocodone Bitartrate/ Ibuprofen (Vicoprofen 7.5-200) 2 tab 1X ONCE 02/24/18 00:45 02/24/18 00:48 DC Lactated Ringer's 1,000 ml @ 1,000 mls/hr Q1H 02/23/18 23:32 02/24/18 00:31 DC 02/23/18 23:52 1,000 MLS/HR Ondansetron HCl (Zofran) 4 mg PRN Q4HRS PRN 02/24/18 00:30 02/25/18 00:29 Oxycodone/ Acetaminophen (Percocet 5/325) 2 tab 1X ONCE 02/24/18 00:45 02/24/18 00:48 DC 02/24/18 00:44 2 TAB Allergies Allergies Allergies Coded Allergies Type Severity Reaction Last Updated Verified doxycycline Allergy Severe Hives 11/27/15 Yes aspirin Allergy Intermediate hives 07/23/15 Yes ibuprofen Allergy Intermediate hives 07/23/15 Yes Physical Exam Physical Exam Constitutional: Moderately acute distress, non-toxic appearance. [] HENT: Normocephalic, atraumatic, bilateral external ears normal, oropharynx moist, mild injection of pharynx, no oral exudates, nose clear rhinorrhea swollen turbinates Eyes: PERRLA, EOMI, conjunctiva normal, no discharge. [] Neck: Normal range of motion, no tenderness, supple, no stridor. [] Cardiovascular: Tachycardia Heart rate regular rhythm, no murmur [] Lungs & Thorax: Bilateral breath sounds equal at apexes with scattered wheezes on auscultation []frequent nonproductive cough Abdomen: Bowel sounds normal, soft, no tenderness, no masses, no pulsatile masses. [] Skin: Warm, dry, no erythema, no rash. [] Back: No tenderness, no CVA tenderness. [] Extremities: No tenderness, no cyanosis, no clubbing, ROM intact, no edema. [] Neurologic: Alert and oriented X 3, normal motor function, normal sensory function, no focal deficits noted. [] Psychologic: Affect anxious and tearful, judgement normal, mood depressed. Current Patient Data Vital Signs Vital Signs Date Time Temp Pulse Resp B/P (MAP) Pulse Ox O2 Delivery O2 Flow Rate FiO2 02/24/18 00:55 98.3 90 24 126/68 (87) 97 Room Air Lab Results Laboratory Tests Test 02/23/18 22:54 02/23/18 23:45 Group A Streptococcus Rapid Negative (NEGATIVE) White Blood Count 25.2 x10^3/uL (4.0-11.0) H Red Blood Count 4.18 x10^6/uL (3.50-5.40) Hemoglobin 12.8 g/dL (12.0-15.5) Hematocrit 37.6 % (36.0-47.0) Mean Corpuscular Volume 90 fL (79-100) Mean Corpuscular Hemoglobin 31 pg (25-35) Mean Corpuscular Hemoglobin Concent 34 g/dL (31-37) Red Cell Distribution Width 13.8 % (11.5-14.5) Platelet Count 404 x10^3/uL (140-400) H Neutrophils (%) (Auto) 79 % (31-73) H Lymphocytes (%) (Auto) 15 % (24-48) L Monocytes (%) (Auto) 6 % (0-9) Eosinophils (%) (Auto) 0 % (0-3) Basophils (%) (Auto) 0 % (0-3) Neutrophils # (Auto) 19.8 x10^3uL (1.8-7.7) H Lymphocytes # (Auto) 3.8 x10^3/uL (1.0-4.8) Monocytes # (Auto) 1.5 x10^3/uL (0.0-1.1) H Eosinophils # (Auto) 0.0 x10^3/uL (0.0-0.7) Basophils # (Auto) 0.0 x10^3/uL (0.0-0.2) Segmented Neutrophils % 83 % (35-66) H Band Neutrophils % 2 % (0-9) Lymphocytes % 10 % (24-48) L Monocytes % 5 % (0-10) Platelet Estimate Increased (ADEQUATE) Urine Collection Type Unknown Urine Color Yellow Urine Clarity Clear Urine pH 6.0 Urine Specific [place] 1.025 Urine Protein Neg (NEG-TRACE) Urine Glucose (UA) Neg mg/dL (NEG) Urine Ketones (Stick) Trace mg/dL (NEG) Urine Blood Small (NEG) Urine Nitrite Neg (NEG) Urine Bilirubin Neg (NEG) Urine Urobilinogen Dipstick 0.2 mg/dL (0.2 mg/dL) Urine Leukocyte Esterase Neg (NEG) Urine RBC Occ /HPF (0-2) Urine WBC 0 /HPF (0-4) Urine Squamous Epithelial Cells Few /LPF Urine Bacteria 0 /HPF (0-FEW) Urine Test Negative (NEG) Sodium Level 138 mmol/L (136-145) Potassium Level 3.6 mmol/L (3.5-5.1) Chloride Level 103 mmol/L (98-107) Carbon Dioxide Level 25 mmol/L (21-32) Anion Gap 10 (6-14) Blood Urea Nitrogen 15 mg/dL (7-20) Creatinine 1.3 mg/dL (0.6-1.0) H Estimated GFR (Cockcroft-Gault) 45.4 Glucose Level 101 mg/dL (70-99) H Calcium Level 8.8 mg/dL (8.5-10.1) Total Bilirubin 0.1 mg/dL (0.2-1.0) L Direct Bilirubin 0.1 mg/dL (0.0-0.2) Aspartate Amino Transferase (AST) 12 U/L (15-37) L Alanine Aminotransferase (ALT) 27 U/L (14-59) Alkaline Phosphatase 56 U/L (46-116) Creatine Kinase 106 U/L (26-192) Troponin I Quantitative < 0.017 ng/mL (0-0.055) Total Protein 7.2 g/dL (6.4-8.2) Albumin 3.3 g/dL (3.4-5.0) L Urine Opiates Screen Neg (NEG) Urine Methadone Screen Neg (NEG) Urine Barbiturates Neg (NEG) Urine Phencyclidine Screen Neg (NEG) Urine Amphetamine/Methamphetamine Neg (NEG) Urine Benzodiazepines Screen Neg (NEG) Urine Cocaine Screen Neg (NEG) Urine Cannabinoids Screen Pos (NEG) Urine Ethyl Alcohol Neg (NEG) EKG EKG [] Radiology/Procedures Radiology/Procedures I interpretation of chest x-ray shows patchy infiltrates. Pneumonia viral pattern[] Course & Med Decision Making Course & Med Decision Making Pertinent Labs and Imaging studies reviewed. (See chart for details). Still awaiting electrolytes 0045. Admit to Dr. Cano for further tx. and eval. [] Final Impression Final Impression 1. Pneumonia 2. Bronchitis 3. Tob. and marijuana use 4. Out pt. tx. failure[] 5. Leukocytosis 25.2 6. Thrombocytosis Dragon Disclaimer Dragon Disclaimer This electronic medical record was generated, in whole or in part, using a voice recognition dictation system. MAC SWAN MD Feb 23, 2018 22:44
[2018-02-23] MEDS ORDERED: cefTRIAXone IM 1 GM VIAL IM ONE ×2 (23:30→23:45)
[2018-02-23] MEDS ORDERED: IV RINGERS SOLUTION,LACTATED 1,000 ML IV SCH (23:32)
[2018-02-23] MEDS ORDERED: IPRATRPIUM/ALBUTEROL 0.5/2.5MG 3 ML NEBU. NEB ONE (23:45)
[2018-02-23] MEDS ORDERED: AZITHROMYCIN 250 MG TABLET. PO ONE (23:45)
[2018-02-24] VITALS (7 sets, daily range): BP systolic 105–135; BP diastolic 61–83
[2018-02-24 00:15] LABS: BASO % 0 % (0-3); EOS % 0 % (0-3); HEMATOCRIT 37.6 % (36.0-47.0); HEMOGLOBIN 12.8 g/dL (12.0-15.5); LYMPH # 3.8 x10^3/uL (1.0-4.8); LYMPH % 15 % (24-48); MEAN CORPUSCULAR HEMOGLOBIN 31 pg (25-35); MEAN CORPUSCULAR HGB CONC 34 g/dL (31-37); MEAN CORPUSCULAR VOLUME 90 fL (79-100); MONO # 1.5 x10^3/uL (0.0-1.1); MONO % 6 % (0-9); NEUT # 19.8 x10^3uL (1.8-7.7); NEUT % 79 % (31-73); PLATELET COUNT 404 x10^3/uL (140-400); RED BLOOD COUNT 4.18 x10^6/uL (3.50-5.40); RED CELL DISTRIBUTION WIDTH 13.8 % (11.5-14.5); WHITE BLOOD COUNT 25.2 x10^3/uL (4.0-11.0)
[2018-02-24 00:19] LABS: BILIRUBIN,URINE NEG (NEG); CLARITY,URINE CLEAR; COLOR,URINE YELLOW; GLUCOSE,URINE NEG (NEG); NITRITE,URINE NEG (NEG); UROBILINOGEN,URINE 0.2 mg/dL (0.2 mg/dL)
[2018-02-24 00:20] LABS: BACTERIA,URINE 0 /HPF (0-FEW); RBC,URINE OCC /HPF (0-2); SQUAMOUS EPITHELIAL CELL,UR FEW /LPF; WBC,URINE 0 /HPF (0-4)
[2018-02-24 00:25] LABS: ALBUMIN 3.3 g/dL (3.4-5.0); CALCIUM 8.8 mg/dL (8.5-10.1); DIRECT BILIRUBIN 0.1 mg/dL (0.0-0.2); POTASSIUM 3.6 mmol/L (3.5-5.1); TOTAL BILIRUBIN 0.1 mg/dL (0.2-1.0); TOTAL PROTEIN 7.2 g/dL (6.4-8.2)
[2018-02-24] MEDS ORDERED: ONDANSETRON PF 4 MG/2 ML VIAL. IV PRN (00:30)
[2018-02-24 00:31] LABS: U PREG PATIENT NEGATIVE (NEG)
[2018-02-24 00:34] LABS: % BANDS 2 % (0-9); % LYMPHS 10 % (24-48); % MONOS 5 % (0-10); % SEGS 83 % (35-66); PLT ESTIMATE INCREASED (ADEQUATE)
[2018-02-24 00:39] LABS: CANNABINOIDS POS (NEG); METHADONE NEG (NEG); OPIATES NEG (NEG); PHENCYCLIDINE NEG (NEG)
[2018-02-24] MEDS ORDERED: oxyCODONE/APAP 5/325 1 TAB TABLET PO ONE (00:45)
[2018-02-24] MEDS ORDERED: HYDROcodon/IBUPROFEN 7.5/200MG 1 TAB TABLET PO ONE (00:45)
[2018-02-24 01:00] LABS: AMPHETAMINE/METHAMPHETAMINE NEG (NEG); BARBITURATES NEG (NEG); BENZODIAZEPINES NEG (NEG); COCAINE NEG (NEG)
[2018-02-24 01:01] LABS: CREATININE 1.3 mg/dL (0.6-1.0); GFR 45.4
[2018-02-24] MEDS: IPRATRPIUM/ALBUTEROL 0.5/2.5MG 3 ML NEBU. NEB SCH ×5 (05:08→21:57)
[2018-02-24] MEDS: guaiFENesin DM 200MG/20MG 10 ML SYRUP PO PRN ×4 (05:17→20:44)
[2018-02-24] MEDS: HYDROcodone/APAP 5/325MG 1 TAB TABLET PO PRN ×4 (05:19→20:44)
[2018-02-24] MEDS: IV NORMAL SALINE 1,000ML 1,000 ML IV SCH (05:21)
--- NOTE | 2018-02-24 08:38 | RAD ---
Chest, PA and Lateral: Technique: PA and lateral views of the chest were obtained. History: Cough, chest pain. Comparison: 07/28/2015. Findings: The heart and pulmonary vasculature appear within normal limits. Mild prominent appearing bilateral interstitial lung markings.. The pleural margins are clear. Impression: Mild prominent appearing bilateral interstitial lung markings could be interstitial infiltrates or bronchitis.. Electronically signed by: Terrence Olson MD (02/24/2018 8:35 AM) [facility]
[2018-02-24] MEDS ORDERED: predniSONE 20 MG TABLET PO SCH (09:00)
[2018-02-24] MEDS ORDERED: LORazepam TOPICAL 0.5 MG/ML GEL TP PRN (11:00)
[2018-02-24] MEDS ORDERED: IPRATRPIUM/ALBUTEROL 0.5/2.5MG 3 ML NEBU. NEB SCH (11:00)
[2018-02-24] MEDS ORDERED: ALBUTEROL SULFATE 2.5 MG/3 ML NEBU. NEB PRN (11:00)
[2018-02-24] MEDS: LORazepam 0.5 MG TABLET PO PRN ×2 (11:14→20:44)
--- NOTE | 2018-02-24 11:47 | HP ---
ADMIT DATE: 02/24/2018 HISTORY OF PRESENT ILLNESS: The patient is a 42-year-old female patient, who was apparently seen in the Emergency Room with a complaint of persistent wheezing, chest tightness, and cough. She apparently was seen in the Emergency Room about 5 days ago and was started on Keflex and given metered dose inhaler; however, the patient reported no improvement in symptoms. She does smoke, but has not smoked for almost 2 weeks according to her. She was evaluated in the Emergency Room and her chest x-ray showed that she might have possible interstitial lung marking could be due to interstitial infiltrate versus bronchitis and she was admitted, started on IV antibiotic, Solu-Medrol, bronchodilator. PAST MEDICAL HISTORY: Unremarkable. PAST SURGICAL HISTORY: Significant for section. ALLERGIES: She is allergic to DOXYCYCLINE, ASPIRIN and IBUPROFEN. MEDICATIONS: She is on no medications at home. FAMILY HISTORY: Unremarkable. SOCIAL HISTORY: She is , has a son and daughter. She does smoke, does not drink alcohol. She smokes weed occasionally. She works at [employer]. REVIEW OF SYSTEMS: The patient denied any blurring of vision, cataract, glaucoma or macular degeneration. Denied any earache, tinnitus or sensorineural deafness. Denied any nosebleeds, stuffy nose or postnasal drip. Denied any sore throat, sore tongue, toothache, hoarseness of voice or difficulty swallowing. Denied any nausea, vomiting, diarrhea or constipation. Denied any hematemesis, melena or hematochezia. Denied any dysuria, frequency or hematuria. Did complain of shortness of breath, chest tightness, and wheezing. PHYSICAL EXAMINATION: GENERAL: When I examined her this morning, she was sitting in her bed, clearly anxious, tachypneic. There is no pallor, jaundice, cyanosis, or thyromegaly. No jugular venous distension. No limb edema. VITAL SIGNS: Her heart rate was 79, blood pressure was 135/83, temperature was 98.3, respiratory rate was 30, and oxygen saturation was 95%. HEAD, EYES, EARS, NOSE AND THROAT: Showed normocephalic, atraumatic. NECK: Supple. HEART: Showed normal first and second heart sounds with no gallop, rub or murmur. CHEST: Clear to auscultation. No crepitation or rhonchi. ABDOMEN: Distended, soft, nontender. No guarding or rigidity. No organomegaly. All hernial orifice intact. Bowel sounds normal. NEUROLOGIC: She is awake, alert, responding appropriately. Cranial nerves intact. EXTREMITIES: She moves extremities without difficulty. She ambulates without assistance or assistive devices. LABORATORY DATA: Showed a white cell count of 25,000, hemoglobin 12.8, hematocrit 37.6, MCV 90 and platelet count of 404,000 with a manual differential showed 79% polymorphs, 15% lymphocytes, 6% monocytes. Her chemistry showed a serum sodium 138, potassium 3.6, chloride 103, bicarbonate 25, anion gap of 10, BUN 15, creatinine 1.3, estimated GFR was 45 mL per minute. Her glucose 101, calcium was 8.8. Total bilirubin, AST, ALT, alkaline phosphatase were normal. Her total protein was 7.2, albumin 3.3 and lactic acid was only 1.3. Urinalysis was essentially unremarkable. Urine test was negative. Toxic screen was positive for cannabinoids. Her group A streptococcus rapid was negative. Her chest x-ray showed that the heart and pulmonary vasculature appeared within normal limits. Mild prominent appearing bilateral interstitial lung marking. The pleural margins are clear with the impression is the patient has mild prominent appearing bilateral interstitial lung markings could be due to interstitial infiltrate versus bronchitis. ASSESSMENT AND PLAN: The patient was admitted, was started on IV Rocephin and Zithromax, bronchodilator, Solu-Medrol. We add Ativan as there is extremely anxious as well as Singulair and Solu-Medrol. We will follow her closely and decide on further management accordingly. RACHAEL GOMEZ MD DR: NIK/kaylee JOB#: [id number] / [id number]
[2018-02-24] MEDS: methylPREDNISolone SOD SUCC PF 40 MG/ML VIAL. IV SCH ×2 (12:38→21:55)
[2018-02-24] MEDS ORDERED: MAG HYDROX/AL HYDROX/SIMETH 30 ML ORAL.SUSP PO PRN (17:15)
[2018-02-24 19:00] LABS: INFLUENZA A PATIENT NEGATIVE (NEGATIVE); INFLUENZA B PATIENT NEGATIVE (NEGATIVE)
[2018-02-24] MEDS: LACTOBACILLUS RHAMNOSUS GG 1 CAPSULE. PO SCH (20:42)
[2018-02-24] MEDS: AZITHROMYCIN 250 MG TABLET. PO SCH (20:43)
[2018-02-24] MEDS: MONTELUKAST 10 MG TABLET. PO SCH (20:44)
[2018-02-25] MEDS: IV NORMAL SALINE 1,000ML 1,000 ML IV SCH ×2 (02:03→14:38)
[2018-02-25 04:27] VITALS: BP 112/67
[2018-02-25] MEDS: IPRATRPIUM/ALBUTEROL 0.5/2.5MG 3 ML NEBU. NEB SCH ×3 (05:11→20:17)
[2018-02-25] MEDS: HYDROcodone/APAP 5/325MG 1 TAB TABLET PO PRN ×4 (06:20→21:16)
[2018-02-25] MEDS: methylPREDNISolone SOD SUCC PF 40 MG/ML VIAL. IV SCH ×3 (06:21→21:16)
[2018-02-25 06:46] LABS: BASO % 0 % (0-3); EOS % 0 % (0-3); HEMATOCRIT 39.2 % (36.0-47.0); HEMOGLOBIN 13.2 g/dL (12.0-15.5); LYMPH # 1.9 x10^3/uL (1.0-4.8); LYMPH % 10 % (24-48); MEAN CORPUSCULAR HEMOGLOBIN 31 pg (25-35); MEAN CORPUSCULAR HGB CONC 34 g/dL (31-37); MEAN CORPUSCULAR VOLUME 91 fL (79-100); MONO # 0.5 x10^3/uL (0.0-1.1); MONO % 3 % (0-9); NEUT # 16.5 x10^3uL (1.8-7.7); NEUT % 87 % (31-73); PLATELET COUNT 400 x10^3/uL (140-400); RED BLOOD COUNT 4.31 x10^6/uL (3.50-5.40); RED CELL DISTRIBUTION WIDTH 13.4 % (11.5-14.5); WHITE BLOOD COUNT 18.9 x10^3/uL (4.0-11.0)
[2018-02-25 06:53] LABS: CREATININE 0.7 mg/dL (0.6-1.0); GFR 92.7; POTASSIUM 4.4 mmol/L (3.5-5.1)
[2018-02-25] MEDS: guaiFENesin DM 200MG/20MG 10 ML SYRUP PO PRN ×3 (08:15→21:30)
[2018-02-25] MEDS: LORazepam 0.5 MG TABLET PO PRN ×2 (08:16→21:33)
[2018-02-25] MEDS: LACTOBACILLUS RHAMNOSUS GG 1 CAPSULE. PO SCH ×2 (08:16→21:16)
[2018-02-25 08:30] LABS: % BANDS 1 % (0-9); % LYMPHS 11 % (24-48); % MONOS 1 % (0-10); % SEGS 86 % (35-66)
[2018-02-25 08:33] LABS: PLT ESTIMATE INCREASED (ADEQUATE)
[2018-02-25 10:23] VITALS: BP 111/66
[2018-02-25 14:49] VITALS: BP 110/74
[2018-02-25 19:39] VITALS: BP 123/76
[2018-02-25] MEDS: MONTELUKAST 10 MG TABLET. PO SCH (21:16)
[2018-02-25] MEDS: AZITHROMYCIN 250 MG TABLET. PO SCH (21:17)
[2018-02-25 22:57] VITALS: BP 98/56
[2018-02-26] MEDS: IV NORMAL SALINE 1,000ML 1,000 ML IV SCH (04:41)
[2018-02-26] MEDS: guaiFENesin DM 200MG/20MG 10 ML SYRUP PO PRN ×2 (04:43→10:08)
[2018-02-26] MEDS: HYDROcodone/APAP 5/325MG 1 TAB TABLET PO PRN (04:54)
[2018-02-26] MEDS: IPRATRPIUM/ALBUTEROL 0.5/2.5MG 3 ML NEBU. NEB SCH ×2 (05:14→09:10)
[2018-02-26 05:21] VITALS: BP 113/74
[2018-02-26] MEDS ORDERED: PRED50TA PO (07:13)
[2018-02-26] MEDS ORDERED: ALBU8.5H8 INH (07:13)
[2018-02-26] MEDS ORDERED: HYDR-2758 PO (07:13)
[2018-02-26] MEDS ORDERED: CEPH-264 PO (07:13)
[2018-02-26] MEDS ORDERED: AZIT500T PO (07:13)
[2018-02-26] MEDS: methylPREDNISolone SOD SUCC PF 40 MG/ML VIAL. IV SCH (08:06)
[2018-02-26] MEDS: LACTOBACILLUS RHAMNOSUS GG 1 CAPSULE. PO SCH (08:06)
[2018-02-26] MEDS: LORazepam 0.5 MG TABLET PO PRN (09:01)
[2018-02-26 10:32] VITALS: BP 126/72
--- NOTE | 2018-02-27 01:08 | DS ---
DATE OF DISCHARGE: 02/26/2018 HOSPITAL COURSE: The patient is a 42-year-old female patient, who was admitted with a complaint of persistent wheezing, chest tightness and cough. She apparently was seen in the Emergency Room about 5 days prior to admission, started to Keflex and given a metered dose inhaler; however, the patient reported no improvement in her symptoms. She does smoke, has not smoked for almost 2 weeks according to her. She was evaluated in the Emergency Room with chest x-ray that showed that she has ____ interstitial markings that could be due to interstitial infiltrate versus bronchitis. We did start her on IV antibiotic, IV Solu-Medrol and bronchodilator. She gradually improved. Yesterday she was still having lot of wheezing and cough. However, when I saw her today, she was sitting up in bed, in no apparent distress. She obviously was able to finish her sentence. She was not anxious or dyspneic. There was no pallor, jaundice, cyanosis or thyromegaly. No jugular venous distension. No limb edema. PHYSICAL EXAMINATION: VITAL SIGNS: Her heart rate was 87, blood pressure was 126/72, temperature was 97.9, respiratory rate 20, and oxygen saturation was 94%. HEAD, EYES, EARS, NOSE AND THROAT: Normocephalic, atraumatic. NECK: Supple. HEART: Showed normal first and second heart sounds. No gallop, rub or murmur. CHEST: Clear to auscultation. No crepitation or rhonchi. ABDOMEN: Distended, soft, nontender. NEUROLOGIC: She is awake, alert, and responding appropriately. Cranial nerves intact. She moves extremities without difficulty. LABORATORY DATA: Her influenza A and B were negative. Group A Streptococcus rapid test was negative. Her white cell count is down to 18,900, hemoglobin 13, hematocrit 39, MCV 91, and platelet count of 400,000 with normal manual differential. Her chemistry showed a serum sodium of 136, potassium 4.4, chloride 101, bicarbonate 28, anion gap of 7, BUN 8, creatinine 0.7, estimated GFR was 93 mL per minute. Her glucose was 120, calcium was 9. DISCHARGE MEDICATIONS: She was discharged home to continue on azithromycin 500 mg once a day, cephalexin or Keflex 500 mg once a day, prednisone. She was discharged on albuterol sulfate and albuterol by nebulizer, citalopram hydrobromide 20 mg once a day, hydrocodone/APAP 5/325 one to two tablets every 4-6 hours p.r.n., trazodone 50 mg at bedtime. She was also discharged on Robitussin-DM 10 mL every 6 hours, Keflex 500 mg 3 times a day and Z-KULWINDER as directed and Medrol Dosepak. FINAL DISCHARGE DIAGNOSES: Community-acquired pneumonia, acute hypoxic respiratory failure, marked leukocytosis and thrombocytosis, and tobacco and marijuana abuse. RACHAEL GOMEZ MD DR: NIK/kaylee JOB#: [id number] / [id number]
== END 2018-02-26 13:15 | disposition home or self-care (01) | DRG 193 ==
LOC: ER 22:41 → 1 SOUTH 02-24 01:08
PROVIDERS: ADMIT Internal Medicine; ATTEND Internal Medicine
DX: J18.9 Pneumonia, unspecified organism (principal); J96.01 Acute respiratory failure with hypoxia; F12.10 Cannabis abuse, uncomplicated; J40 Bronchitis, not specified as acute or chronic; F17.210 Nicotine dependence, cigarettes, uncomplicated; Z79.899 Other long term (current) drug therapy; Z88.8 Allergy status to other drugs, medicaments and biological substances
CPT/HCPCS: 36415; 71046; 80048; 80076; 80307; 81001; 81025; 82550; 83605; 84484; 85007; 85025; 87040; 87070; 87449; 87804; 87880; 90471; 90756; 94640; 96360; 96372; J0456; J0696; J2920; J7120; J7512; J7613; J7620; 99285-25; G0479; J7030; Q2035

== ENCOUNTER 2018-12-21 15:23 | Emergency (ER) | payer SELFPAY ==
[~2018-12-21] VITALS: Ht 162.6 cm; Wt 68.0 kg
[~2018-12-21 15:23] MED LIST changes: +ALBU2.5V8 INH; -ALBU8.5H8 INH; +HYDR-2155 PO; +HYDR-3165 PO; -HYDR-971 PO; -HYDR15SO4 PO; +HYDR15SO6 PO; +TRAZ-120 PO; -TRAZ-85 PO
--- NOTE | 2018-12-21 16:03 | PHYS DOC ---
Past History Past Medical History: No Pertinent History, Bronchitis, Pneumonia (MELISSA MONTAGUE DO) Past Surgical History: No Surgical History (MELISSA MONTAGUE DO) Smoking: Less than 1pk/day Alcohol Use: None Drug Use: None, Other (MELISSA MONTAGUE DO) Adult General Chief Complaint Chief Complaint: BREAST PAIN/INJURY [facility] HPI 43-year-old female presents with concern for right breast mass. Patient believes that she started to notice a firm nodule up to 3 months ago. It seems to have increased in size. She is also having much more discomfort with it. It is 2 cm superior to the nipple and seems to be linear lateral. She is quite scared because her aunt had breast cancer. There is also strong history of other types of cancer throughout family. She has not had a mammogram since 2013. She knows t hat she has a clogged" in her left breast, but this has been stable and does not bother her. There are no skin changes. She has not had any discharge from her breast. She denies any other concerns or complaints. (MELISSA MONTAGUE DO) Review of Systems Review of Systems Constitutional: Denies fever or chills [] Eyes: Denies change in visual acuity, redness, or eye pain [] HENT: Denies nasal congestion or sore throat [] Respiratory: Denies cough or shortness of breath [] Cardiovascular: No additional information not addressed in HPI [] GI: Denies abdominal pain, nausea, vomiting, bloody stools or diarrhea [] : Denies dysuria or hematuria. Right breast mass [] Musculoskeletal: Denies back pain or joint pain [] Integument: Denies rash or skin lesions [] Neurologic: Denies headache, focal weakness or sensory changes [] Endocrine: Denies polyuria or polydipsia [] All other systems were reviewed and found to be within normal limits, except as documented in this note. (MELISSA MONTAGUE DO) Allergies Allergies Allergies Coded Allergies Type Severity Reaction Last Updated Verified doxycycline Allergy Severe Hives 11/27/15 Yes aspirin Allergy Intermediate hives 07/23/15 Yes ibuprofen Allergy Intermediate hives 07/23/15 Yes (MELISSA MONTAGUE DO) Physical Exam Physical Exam Constitutional: Well developed, well nourished, no acute distress, non-toxic appearance. [] HENT: Normocephalic, atraumatic, bilateral external ears normal, oropharynx moist, no oral exudates, nose normal. [] Eyes: PERRLA, EOMI, conjunctiva normal, no discharge. [] Neck: Normal range of motion, no tenderness, supple, no stridor. [] Cardiovascular:Heart rate regular rhythm, no murmur [] Lungs & Thorax: Bilateral breath sounds clear to auscultation [] Abdomen: Bowel sounds normal, soft, no tenderness, no masses, no pulsatile masses. [] Skin: Warm, dry, no erythema, no rash. Firm, mobile mass in the right breast 2 cm superior to the nipple, 1 cm wide by 3 cm long. Tender to palpation.[] Back: No tenderness, no CVA tenderness. [] Extremities: No tenderness, no cyanosis, no clubbing, ROM intact, no edema. [] Neurologic: Alert and oriented X 3, normal motor function, normal sensory function, no focal deficits noted. [] Psychologic: Affect normal, judgement normal, mood scared. [] (MELISSA MONTAGUE DO) EKG EKG [] (MELISSA MONTAGUE DO) Radiology/Procedures Radiology/Procedures [] (MELISSA MONTAGUE DO) Course & Med Decision Making Course & Med Decision Making Pertinent Labs and Imaging studies reviewed. (See chart for details) It is taking a very long time for the geotechnical department manager to get to this facility. I'm signing the patient out to Dr. Butler at 1800. He will determine the patient's final disposition. [] (MELISSA MONTAGUE DO) Course & Med Decision Making Pt. apparently left before US. Pt. left without informing ED staff. Attempt to contact pt. unsuccessful. (MAC BUTLER MD) Dragon Disclaimer Dragon Disclaimer This electronic medical record was generated, in whole or in part, using a voice recognition dictation system. (MELISSA MONTAGUE DO) Departure Departure: Impression: Primary Impression: Breast mass in female Referrals: PCP,NO (PCP) MELISSA MONTAGUE DO Dec 21, 2018 16:03 MAC BUTLER MD Dec 23, 2018 06:05
[2018-12-21 18:44] VITALS: BP 137/78
== END 2018-12-21 17:50 | disposition left against medical advice (07) ==
LOC: ER 15:23
DX: N63.0 Unspecified lump in unspecified breast (principal); F17.200 Nicotine dependence, unspecified, uncomplicated; Z88.1 Allergy status to other antibiotic agents; Z88.6 Allergy status to analgesic agent
CPT/HCPCS: 99281

== ENCOUNTER 2019-04-25 17:53 | Emergency (ER) | payer SELFPAY ==
[~2019-04-25] VITALS: Ht 162.6 cm; Wt 81.6 kg
--- NOTE | 2019-04-25 18:03 | PHYS DOC ---
Past History Past Medical History: No Pertinent History Past Surgical History: No Surgical History Smoking: Less than 1pk/day Alcohol Use: None Drug Use: None Adult General Chief Complaint Chief Complaint: " .. I was going down the stairs.. and reyna twisted, stubbed my Rt. toe.. yesterday.. it still hurts bad..." HPI HPI Patient is a 43 year old female who presents with above hx and complaints of right first toe pain after injury yesterday. Patient toe capillary refill and sensation is equal to left toe. Toe is swollen. Does have some mild ecchymosis. No pain on foot squeeze. Ankle mortise is stable.. No upper leg tenderness. Patient normally healthy. Up-to-date with vaccinations. No recent travel. Review of Systems Review of Systems Constitutional: Denies fever or chills [] Eyes: Denies change in visual acuity, redness, or eye pain [] HENT: Denies nasal congestion or sore throat [] Respiratory: Denies cough or shortness of breath [] Cardiovascular: No additional information not addressed in HPI [] GI: Denies abdominal pain, nausea, vomiting, bloody stools or diarrhea [] : Denies dysuria or hematuria [] Musculoskeletal: Denies back pain or joint pain [. Except] complaints of right first toe pain Integument: Denies rash or skin lesions [] Neurologic: Denies headache, focal weakness or sensory changes [] Endocrine: Denies polyuria or polydipsia [] All other systems were reviewed and found to be within normal limits, except as documented in this note. Family History Family History Noncontributory Current Medications Current Medications See nursing for home meds Allergies Allergies Allergies Coded Allergies Type Severity Reaction Last Updated Verified doxycycline Allergy Severe Hives 11/27/15 Yes aspirin Allergy Intermediate hives 07/23/15 Yes ibuprofen Allergy Intermediate hives 07/23/15 Yes Physical Exam Physical Exam Constitutional: Moderate acute distress, non-toxic appearance. [] HENT: Normocephalic, atraumatic, bilateral external ears normal, oropharynx moist, no oral exudates, nose normal. [] Eyes: PERRLA, EOMI, conjunctiva normal, no discharge. [] Neck: Normal range of motion, no tenderness, supple, no stridor. [] Cardiovascular:Heart rate regular rhythm, no murmur [] Lungs & Thorax: Bilateral breath sounds clear to auscultation [] Abdomen: Bowel sounds normal, soft, no tenderness, no masses, no pulsatile masses. [] Skin: Warm, dry, no erythema, no rash. [] Back: No tenderness, no CVA tenderness. [] Extremities: No tenderness, no cyanosis, no clubbing, ROM intact, no edema. [] Except findings in right first toe as per history of present illness Neurologic: Alert and oriented X 3, normal motor function, normal sensory function, no focal deficits noted. [] Psychologic: Affect normal, judgement normal, mood normal. [] EKG EKG [] Radiology/Procedures Radiology/Procedures [][place] [address] IMAGING REPORT Signed PATIENT: OFE JOSEPH ACCOUNT: [id number] : 1975 LOCATION: ER AGE: 43 SEX: F EXAM STATUS: DEP ER ORD. PHYSICIAN: MAC SWAN MD REASON: Fall on stairs tonight.Rt great toe/foot pain PROCEDURE: FOOT RIGHT 3V Three-view right foot radiographs 04/25/2019 CLINICAL HISTORY: Fall with injury to the right foot. AP, lateral and oblique digital radiographs of the right foot were obtained. There is a questionable slightly comminuted nondisplaced fracture of the proximal metaphysis/diaphysis of the distal phalanx of the right first toe. Clinical correlation with the patient's injury is recommended. No additional fracture is seen. Mild to moderate degenerative changes are seen involving the first MTP joint. IMPRESSION: Question nondisplaced fracture involving the distal phalanx of the right first toe as discussed above. Electronically signed by: Se Graves MD (04/25/2019 10:11 PM) [facility] DICTATED AND SIGNED BY: SE GRAVES MD DATE: 04/25/192210 CC: MAC SWAN MD; PCP,NO ~ Course & Med Decision Making Course & Med Decision Making Pertinent Labs and Imaging studies reviewed. (See chart for details) Ice, elevation, rest, stiff shoe, and follow-up primary care. Take Tylenol for pain. Consider trial of brittney taping. Consider repeat x-ray in 2 weeks if persistent pain. Follow-up primary care. Return if any concerns.. []Impression: 1. Sprain / Strain 1 st toe Rt 2. Contusion lst toe Rt. 3. 1st Toe Non-displaced Fracture Radha Disclaimer Radha Disclaimer This electronic medical record was generated, in whole or in part, using a voice recognition dictation system. Departure Departure: Disposition: HOME/RESIDENCE PRIOR TO ADM Condition: STABLE Referrals: PCP,NO (PCP) Scripts Oxycodone HCl/Acetaminophen (Percocet 5-325 mg Tablet) 1 Each Tablet 1 TAB PO PRN QID PRN for PAIN MDD 4 Tablet(s) for 5 Days, #30 TAB 0 Refills Prov: MAC SWAN MD 04/25/19 Radha Disclaimer This chart was dictated in whole or in part using Voice Recognition software in a busy, high-work load, and often noisy Emergency Department environment. It may contain unintended and wholly unrecognized errors or omissions. [place] Disclaimer This chart was dictated in whole or in part using Voice Recognition software in a busy, high-work load, and often noisy Emergency Department environment. It may contain unintended and wholly unrecognized errors or omissions. MAC SWAN MD Apr 25, 2019 18:03
[2019-04-25] MEDS ORDERED: oxyCODONE/APAP 5/325 1 TAB TABLET PO ONE (19:00)
[2019-04-25] MEDS ORDERED: OXYC-325 PO (20:27)
[2019-04-25 20:56] VITALS: BP 114/50
--- NOTE | 2019-04-25 22:14 | RAD ---
Three-view right foot radiographs 04/25/2019 CLINICAL HISTORY: Fall with injury to the right foot. AP, lateral and oblique digital radiographs of the right foot were obtained. There is a questionable slightly comminuted nondisplaced fracture of the proximal metaphysis/diaphysis of the distal phalanx of the right first toe. Clinical correlation with the patient's injury is recommended. No additional fracture is seen. Mild to moderate degenerative changes are seen involving the first MTP joint. IMPRESSION: Question nondisplaced fracture involving the distal phalanx of the right first toe as discussed above. Electronically signed by: Se Carrillo MD (04/25/2019 10:11 PM) [facility]
== END 2019-04-25 20:55 | disposition home or self-care (01) ==
LOC: ER 17:53
DX: S92.424A Nondisplaced fracture of distal phalanx of right great toe, initial encounter for closed fracture (principal); F17.200 Nicotine dependence, unspecified, uncomplicated; Z88.1 Allergy status to other antibiotic agents; Z88.6 Allergy status to analgesic agent; X50.9XXA Other and unspecified overexertion or strenuous movements or postures, initial encounter; Y93.89 Activity, other specified; Y92.89 Other specified places as the place of occurrence of the external cause; Y99.8 Other external cause status
CPT/HCPCS: 73630; 99284

== ENCOUNTER 2019-07-25 08:09 | Emergency (ER) | payer SELFPAY ==
[~2019-07-25] VITALS: Ht 162.6 cm; Wt 83.0 kg
[~2019-07-25 08:09] MED LIST changes: +OXYC-325 PO
[2019-07-25] MEDS ORDERED: ONDANSETRON PF 4 MG/2 ML VIAL. IVP ONE (08:30)
[2019-07-25] MEDS ORDERED: FAMOTIDINE 20 MG/2 ML VIAL IVP ONE (08:30)
[2019-07-25] MEDS ORDERED: IV NORMAL SALINE 1,000ML 1,000 ML IV ONE (08:30)
--- NOTE | 2019-07-25 08:59 | PHYS DOC ---
Past History Past Medical History: No Pertinent History Past Surgical History: Other Additional Past Surgical Histo: D&C Smoking: Less than 1pk/day Alcohol Use: None Drug Use: Marijuana Adult General Chief Complaint Chief Complaint: ABDOMINAL PAIN IN HPI HPI Patient is a 44-year-old female who presents with right lower quadrant abdominal pain that began this morning. She is currently 7 weeks and says that she wakes up every morning and vomits around 7:30 AM. This morning as she vomited she began having this abdominal pain. She describes it as stabbing and rates it as a 7 out of 10. She says the pain gets worse with inspiration and sitting up. She continues to have nausea. She denies fevers, chills, diarrhea, vaginal discharge or bleeding. She has only one sexual partner. She has had 3 prior pregnancies. One resulted in D&C in 2001. The other 2 pregnancies went full-term with no complications. Last menstrual period was June 05. She has not seen an OB for this yet and says that she has an appointment on August 05. Review of Systems Review of Systems Constitutional: Denies fever or chills Eyes: Denies redness or eye pain HENT: Denies nasal congestion or sore throat Respiratory: Denies cough or shortness of breath Cardiovascular: Denies chest pain or palpitations GI: Reports RLQ abdominal pain, nausea, and vomiting /[employer] MATE: Denies dysuria or hematuria; denies vaginal bleeding or discharge; reports Musculoskeletal: Denies back pain or joint pain Integument: Denies rash or skin lesions Neurologic: Denies headache, focal weakness or sensory changes Complete systems were reviewed and found to be within normal limits, except as documented in this note. Current Medications Current Medications Current Medications Medications (Trade) Dose Ordered Sig/[facility] Start Time Stop Time Status Last Admin Dose Admin Famotidine (Pepcid Vial) 20 mg 1X ONCE 07/25/19 08:30 07/25/19 08:50 DC 07/25/19 08:30 20 MG Ondansetron HCl (Zofran) 4 mg 1X ONCE 07/25/19 08:30 07/25/19 08:50 DC 07/25/19 08:30 4 MG Sodium Chloride 1,000 ml @ 1,000 mls/hr 1X ONCE 07/25/19 08:30 07/25/19 09:29 07/25/19 08:30 1,000 MLS/HR Allergies Allergies Allergies Coded Allergies Type Severity Reaction Last Updated Verified doxycycline Allergy Severe Hives 07/25/19 Yes aspirin Allergy Intermediate hives 07/25/19 Yes ibuprofen Allergy Intermediate hives 07/25/19 Yes Physical Exam Physical Exam Constitutional: Well developed, well nourished, no acute distress, non-toxic appearance HENT: Normocephalic, atraumatic, oropharynx moist Eyes: EOMI, conjunctiva normal, no discharge Neck: Normal range of motion, supple Cardiovascular: Heart rate normal, regular rhythm Lungs & Thorax: Bilateral breath sounds clear to auscultation, no wheezing Abdomen: Soft, Tenderness in the right lower quadrant, most severe in the right inguinal area, no masses appreciated Genitourinary: pelvic exam performed, no external deformities or lesions, no cervical motion tenderness, some adnexal tenderness on the right, minimal clear vaginal discharge in vault Skin: Warm, dry, no erythema, no rash Back: No tenderness, no CVA tenderness Extremities: No tenderness, ROM intact, no edema Neurologic: Alert and oriented X 3, normal motor function, normal sensory function, no focal deficits noted Psychologic: Affect normal, judgment normal Current Patient Data Vital Signs Vital Signs Date Time Temp Pulse Resp B/P (MAP) Pulse Ox O2 Delivery O2 Flow Rate FiO2 07/25/19 08:20 98.3 96 18 144/83 (103) 98 Room Air EKG EKG [] Radiology/Procedures Radiology/Procedures OB <14 WKS W/TV OB <14 WKS W/TV History: Abdominal pain and . Comparison: None. Technique: Grayscale and color Doppler imaging of the pelvis was performed using transabdominal and transvaginal technique. Findings: The uterus measures 10.8 x 6.5 x 5.1 cm in length. Single intrauterine with gestational sac and yolk sac identified. pole identified with crown-rump length 0.8 cm. heart rate 123 bpm. Estimated gestational age by ultrasound 6 weeks 5 days. No evidence of subchorionic hematoma. Right ovary measures 3.6 x 3.0 x 2.1 cm. Left ovary measures 3.3 x 2.9 x 2.8 cm. Hemorrhagic left ovarian follicle measures 2.3 x 2.0 x 2.2 cm, may represent corpus luteal cyst. No adnexal masses are seen. No free fluid. IMPRESSION: 1. Single intrauterine gestational age 6 weeks 5 days with heart rate 123 bpm. Electronically signed by: Ritchie Fair DO (07/25/2019 9:38 AM) [id number] Course & Med Decision Making Course & Med Decision Making Pertinent Labs and Imaging studies reviewed. (See chart for details) Patient is a 49-year-old female who presented to the ED with stabbing right lower quadrant abdominal pain that began this morning as she was vomiting. Pelvic exam performed with some adnexal tenderness and no cervical motion tenderness. Chlamydia/Gonorrhea cultures pending. Empiric antibiotic given. Wet mount negative. Ultrasound was performed and showed single intrauterine gestational age 6 weeks 5 days with no adnexal masses or free fluid. Labs obtained and posted to chart. Patient stable for discharge with outpatient follow-up with PCP/OB. Discussed findings and plan with patient and family, who acknowledge understanding and agreement. Dragon Disclaimer Dragon Disclaimer This electronic medical record was generated, in whole or in part, using a voice recognition dictation system. Departure Departure: Impression: Primary Impression: Abdominal pain during Disposition: 01 HOME, SELF-CARE Condition: STABLE Referrals: PCP,NO (PCP) Patient Instructions: ABCs of , Abdominal Pain During , Bjdy-rn-Smpn Scripts Ondansetron (ONDANSETRON ODT) 4 Mg Tab.rapdis 1 TAB PO PRN Q6-8HRS PRN for NAUSEA, #16 TAB Prov: LEE PAREKH DO 07/25/19 Problem Qualifiers Primary Impression: Abdominal pain during Trimester: first trimester Qualified Codes: O26.891 - Other specified related conditions, first trimester; R10.9 - Unspecified abdominal pain LEE PAREKH DO Jul 25, 2019 08:59
[2019-07-25 09:13] LABS: BASO % 1 % (0-3); EOS % 0 % (0-3); HEMATOCRIT 39.3 % (36.0-47.0); HEMOGLOBIN 13.1 g/dL (12.0-15.5); LYMPH # 2.3 x10^3/uL (1.0-4.8); LYMPH % 22 % (24-48); MEAN CORPUSCULAR HEMOGLOBIN 31 pg (25-35); MEAN CORPUSCULAR HGB CONC 33 g/dL (31-37); MEAN CORPUSCULAR VOLUME 93 fL (79-100); MONO # 0.8 x10^3/uL (0.0-1.1); MONO % 7 % (0-9); NEUT # 7.5 x10^3uL (1.8-7.7); NEUT % 70 % (31-73); PLATELET COUNT 304 x10^3/uL (140-400); RED BLOOD COUNT 4.25 x10^6/uL (3.50-5.40); RED CELL DISTRIBUTION WIDTH 13.5 % (11.5-14.5); WHITE BLOOD COUNT 10.7 x10^3/uL (4.0-11.0)
[2019-07-25 09:25] LABS: BACTERIA,URINE FEW /HPF (0-FEW); BILIRUBIN,URINE NEG (NEG); CLARITY,URINE HAZY; COLOR,URINE YELLOW; GLUCOSE,URINE NEG (NEG); NITRITE,URINE NEG (NEG); RBC,URINE RARE /HPF (0-2); UROBILINOGEN,URINE 0.2 mg/dL (0.2 mg/dL); WBC,URINE OCC /HPF (0-4)
[2019-07-25 09:26] LABS: SQUAMOUS EPITHELIAL CELL,UR MANY /LPF
[2019-07-25 09:32] LABS: CALCIUM 8.2 mg/dL (8.5-10.1); CREATININE 0.7 mg/dL (0.6-1.0); GFR 91.8; POTASSIUM 3.6 mmol/L (3.5-5.1)
[2019-07-25 09:38] LABS: ALBUMIN 3.5 g/dL (3.4-5.0); ALBUMIN/GLOBULIN RATIO 1.1 (1.0-1.7); TOTAL BILIRUBIN 0.2 mg/dL (0.2-1.0); TOTAL PROTEIN 6.6 g/dL (6.4-8.2)
--- NOTE | 2019-07-25 09:40 | RAD ---
OB <14 WKS W/TV History: Abdominal pain and . Comparison: None. Technique: Grayscale and color Doppler imaging of the pelvis was performed using transabdominal and transvaginal technique. Findings: The uterus measures 10.8 x 6.5 x 5.1 cm in length. Single intrauterine with gestational sac and yolk sac identified. pole identified with crown-rump length 0.8 cm. heart rate 123 bpm. Estimated gestational age by ultrasound 6 weeks 5 days. No evidence of subchorionic hematoma. Right ovary measures 3.6 x 3.0 x 2.1 cm. Left ovary measures 3.3 x 2.9 x 2.8 cm. Hemorrhagic left ovarian follicle measures 2.3 x 2.0 x 2.2 cm, may represent corpus luteal cyst. No adnexal masses are seen. No free fluid. IMPRESSION: 1. Single intrauterine gestational age 6 weeks 5 days with heart rate 123 bpm. Electronically signed by: Ritchie Fair DO (07/25/2019 9:38 AM) [id number]
[2019-07-25 10:07] VITALS: BP 105/56
[2019-07-25] MEDS ORDERED: AZITHROMYCIN 250 MG TABLET. PO ONE (10:15)
[2019-07-25] MEDS ORDERED: cefTRIAXone IM 250 MG VIAL IM ONE (10:15)
[2019-07-25] MEDS ORDERED: ONDA4TAB12 PO (10:26)
[2019-07-28 20:06] LABS: CHLAMYDIA PROBE Negative (Negative)
== END 2019-07-25 10:33 | disposition home or self-care (01) ==
LOC: ER 08:09
DX: O26.891 Other specified pregnancy related conditions, first trimester (principal); R10.31 Right lower quadrant pain; O21.9 Vomiting of pregnancy, unspecified; O99.331 Smoking (tobacco) complicating pregnancy, first trimester; Z3A.01 Less than 8 weeks gestation of pregnancy; Z88.1 Allergy status to other antibiotic agents; Z88.6 Allergy status to analgesic agent
CPT/HCPCS: 36415; 76801; 76817; 80053; 81001; 83690; 83735; 84702; 85025; 86900; 86901; 87491; 87591; 96361; 96372; 96374; 96375; 99284; J0456; J0696; J2405; J3490; Q0111; J7030

== ENCOUNTER 2019-09-18 12:08 | Emergency (ER) | payer OTHER ==
[~2019-09-18] VITALS: Ht 162.6 cm; Wt 83.8 kg
[~2019-09-18 12:08] MED LIST changes: +ONDA4TAB12 PO
[2019-09-18 12:19] VITALS: BP 145/86
[2019-09-18] MEDS: IV NORMAL SALINE 1,000ML 1,000 ML IV ONE (12:30)
--- NOTE | 2019-09-18 12:34 | PHYS DOC ---
Past History Past Medical History: No Pertinent History Past Surgical History: No Surgical History Additional Past Surgical Histo: D&C Smoking: Less than 1pk/day Alcohol Use: None Drug Use: Marijuana General Adult EDM: Chief Complaint: ABDOMINAL PAIN IN HPI: HPI: 44-year-old female presents with right lower quadrant abdominal pain. The patient is 14 weeks . Starting yesterday, she developed a right lower quadrant cramping sensation and tenderness. It is moderate in intensity. She has not had any traumas or falls. She denies any overuse. The pain is almost down to the inguinal ligament. She denies nausea, vomiting, diarrhea, constipation, dysuria, increased urinary frequency. She has had no vaginal bleeding or discharge. Denies fever chills. No history of previous abdominal surgery. Review of Systems: Review of Systems: Constitutional: Denies fever or chills Eyes: Denies change in visual acuity HENT: Denies nasal congestion or sore throat Respiratory: Denies cough or shortness of breath Cardiovascular: Denies chest pain or edema GI: Right lower quadrant abdominal pain. Denies nausea, vomiting, bloody stools or diarrhea : Denies dysuria Musculoskeletal: Denies back pain or joint pain Integument: Denies rash Neurologic: Denies headache, focal weakness or sensory changes Endocrine: Denies polyuria or polydipsia Lymphatic: Denies swollen glands Psychiatric: Denies depression or anxiety Heart Score: Risk Factors: Risk Factors: DM, Current or recent (<one month) smoker, HTN, HLP, family history of CAD, obesity. Risk Scores: Score 0 - 3: 2.5% MACE over next 6 weeks - Discharge Home Score 4 - 6: 20.3% MACE over next 6 weeks - Admit for Clinical Observation Score 7 - 10: 72.7% MACE over next 6 weeks - Early Invasive Strategies Current Medications: Current Meds: Current Medications Medications (Trade) Dose Ordered Sig/Luis Manuel Start Time Stop Time Status Last Admin Dose Admin Sodium Chloride 1,000 ml @ 1,000 mls/hr 1X ONCE 09/18/19 12:30 09/18/19 13:29 Allergies: Allergies: Allergies Coded Allergies Type Severity Reaction Last Updated Verified doxycycline Allergy Severe Hives 07/25/19 Yes aspirin Allergy Intermediate hives 07/25/19 Yes ibuprofen Allergy Intermediate hives 07/25/19 Yes Physical Exam: PE: Constitutional: Well developed, well nourished, no acute distress, non-toxic appearance. [] HENT: Normocephalic, atraumatic, bilateral external ears normal, oropharynx moist, no oral exudates, nose normal. [] Eyes: PERRLA, EOMI, conjunctiva normal, no discharge. [] Neck: Normal range of motion, no tenderness, supple, no stridor. [] Cardiovascular: Heart rate regular rhythm, no murmur [] Lungs & Thorax: Bilateral breath sounds clear to auscultation [] Abdomen: Bowel sounds normal, soft, tenderness over and just above right inguinal ligament, no masses, no pulsatile masses. [] Skin: Warm, dry, no erythema, no rash. [] Back: No tenderness, no CVA tenderness. [] Extremities: No tenderness, no cyanosis, no clubbing, ROM intact, no edema. [] Neurologic: Alert and oriented X 3, normal motor function, normal sensory function, no focal deficits noted. [] Psychologic: Affect normal, judgement normal, mood normal. [] Current Patient Data: Vital Signs: Vital Signs Date Time Temp Pulse Resp B/P (MAP) Pulse Ox O2 Delivery O2 Flow Rate FiO2 09/18/19 12:19 98.6 104 18 145/86 (105) 97 Room Air EKG: EKG: [] Radiology/Procedures: Radiology/Procedures: [] Impressions: Study:US PREG MORE THAN OR EQ TO 14 WKS Clinical Indication: Lower abdominal pain. Known . Comparison: 07/25/2019 Technique: Multiple grayscale images, color Doppler, and M-mode images of the uterus are obtained. Findings: There is a single intrauterine gestation in breech presentation. The placenta is posterior in location. The amount of amniotic fluid appears appropriate. Biometrical data: BPD = 2.9 cm for 15 weeks 1 days. HC = 10.6 cm for 15 weeks 0 days. AC = 8.7 cm for 15 weeks 0 days. FL = 1.5 cm for a 14 weeks 2 days. CI ratio = 84.4. HC/AC ratio = 1.23. FL/HC ratio = 13.8. FL/AC ratio = 17.0. Overall, the estimated sonographic gestational age is 14 weeks 6 days The estimated date of delivery provided by the last menstrual period is 14 weeks 6 day. The estimated heart rate is 157 beats per minute. A complete survey was not performed. The appendix was not able to be visualized nor were the ovaries. No large volume free fluid is seen within the pelvis. The patient reported discomfort at the right groin. Targeted assessment of this region revealed scattered lymph nodes that are not pathologically enlarged. Impression: 1. Single live intrauterine with estimated sonographic gestational age of 14 weeks 6 days which is the same as that by last menstrual period. No complicating features identified noting that a full survey was not performed. 2. The appendix and both ovaries were not able to be visualized. No significant volume free fluid within the deep pelvis. 3. No acute abnormality at the right groin where the patient reports discomfort. Electronically signed by: ADIEL COTTER MD (09/18/2019 1:10 PM) [id number] Course & Med Decision Making: Course & Med Decision Making Pertinent Labs and Imaging studies reviewed. (See chart for details) The patient has an elevated white count. Rest of her labs are abnormal. Her urinalysis is negative for infection. The ultrasound did not show any sign ificant findings. See official read for more details. The appendix was also not visualized. Given the patient's elevated white count and location of her pain in the right lower quadrant, and concern for appendicitis. I spoke with the patient at length about potential options. We discussed CT scan to prove she has appendicitis. She would like to defer this at this time. We talked about admission versus discharge with antibiotics and she would like to be discharged with antibiotics. We will do a trial of Augmentin and metronidazole. The patient understands there is a level risk with these medications. She will inform her OB of this treatment plan. If anything about her condition worsens, she will come back to the hospital. She is stable for discharge at this time. [] Dragon Disclaimer: Dragon Disclaimer: This electronic medical record was generated, in whole or in part, using a voice recognition dictation system. Departure Departure: Impression: Primary Impression: Appendicitis Qualified Codes: K37 - Unspecified appendicitis Disposition: HOME, SELF-CARE Condition: STABLE Referrals: PCP,NO (PCP) Patient Instructions: Abdominal Pain, Possible Early Appendicitis Scripts Amoxicillin/Potassium Clav (AUGMENTIN 875-125 TABLET) 1 Each Tablet 1 TAB PO BID for appendicitis for 7 Days, #14 TAB 0 Refills Prov: MELISSA MONTAGUE DO 09/18/19 Metronidazole (METRONIDAZOLE) 250 Mg Tablet 1 TAB PO TID for appendicitis, #21 TAB Prov: MELISSA MONTAGUE DO 09/18/19 Hydrocodone Bit/Acetaminophen (NORCO 5-325 TABLET) 1 Each Tablet 1 TAB PO PRN Q6HRS PRN for PAIN, #10 TAB 0 Refills Prov: MELISSA MONTAGUE DO 09/18/19 MELISSA MONTAGUE DO Sep 18, 2019 12:34
[2019-09-18 12:51] LABS: BASO % 0 % (0-3); EOS % 0 % (0-3); HEMATOCRIT 37.5 % (36.0-47.0); HEMOGLOBIN 12.7 g/dL (12.0-15.5); LYMPH # 2.6 x10^3/uL (1.0-4.8); LYMPH % 21 % (24-48); MEAN CORPUSCULAR HEMOGLOBIN 32 pg (25-35); MEAN CORPUSCULAR HGB CONC 34 g/dL (31-37); MEAN CORPUSCULAR VOLUME 93 fL (79-100); MONO # 0.8 x10^3/uL (0.0-1.1); MONO % 6 % (0-9); NEUT # 9.2 x10^3uL (1.8-7.7); NEUT % 73 % (31-73); PLATELET COUNT 341 x10^3/uL (140-400); RED BLOOD COUNT 4.02 x10^6/uL (3.50-5.40); RED CELL DISTRIBUTION WIDTH 13.8 % (11.5-14.5); WHITE BLOOD COUNT 12.6 x10^3/uL (4.0-11.0)
[2019-09-18 13:02] LABS: CREATININE 0.5 mg/dL (0.6-1.0); GFR 135.3; POTASSIUM 3.8 mmol/L (3.5-5.1)
[2019-09-18 13:08] LABS: ALBUMIN 3.3 g/dL (3.4-5.0); TOTAL BILIRUBIN 0.2 mg/dL (0.2-1.0); TOTAL PROTEIN 6.5 g/dL (6.4-8.2)
--- NOTE | 2019-09-18 13:13 | RAD ---
Study:US PREG MORE THAN OR EQ TO 14 WKS Clinical Indication: Lower abdominal pain. Known . Comparison: 07/25/2019 Technique: Multiple grayscale images, color Doppler, and M-mode images of the uterus are obtained. Findings: There is a single intrauterine gestation in breech presentation. The placenta is posterior in location. The amount of amniotic fluid appears appropriate. Biometrical data: BPD = 2.9 cm for 15 weeks 1 days. HC = 10.6 cm for 15 weeks 0 days. AC = 8.7 cm for 15 weeks 0 days. FL = 1.5 cm for a 14 weeks 2 days. CI ratio = 84.4. HC/AC ratio = 1.23. FL/HC ratio = 13.8. FL/AC ratio = 17.0. Overall, the estimated sonographic gestational age is 14 weeks 6 days The estimated date of delivery provided by the last menstrual period is 14 weeks 6 day. The estimated heart rate is 157 beats per minute. A complete survey was not performed. The appendix was not able to be visualized nor were the ovaries. No large volume free fluid is seen within the pelvis. The patient reported discomfort at the right groin. Targeted assessment of this region revealed scattered lymph nodes that are not pathologically enlarged. Impression: 1. Single live intrauterine with estimated sonographic gestational age of 14 weeks 6 days which is the same as that by last menstrual period. No complicating features identified noting that a full survey was not performed. 2. The appendix and both ovaries were not able to be visualized. No significant volume free fluid within the deep pelvis. 3. No acute abnormality at the right groin where the patient reports discomfort. Electronically signed by: ADIEL COTTER MD (09/18/2019 1:10 PM) [id number]
[2019-09-18 13:14] LABS: BACTERIA,URINE MANY /HPF (0-FEW); BILIRUBIN,URINE NEG (NEG); CLARITY,URINE HAZY; COLOR,URINE YELLOW; GLUCOSE,URINE NEG (NEG); NITRITE,URINE NEG (NEG); SQUAMOUS EPITHELIAL CELL,UR MANY /LPF; UROBILINOGEN,URINE 0.2 mg/dL (0.2 mg/dL)
[2019-09-18] MEDS ORDERED: AMOX1TAB61 PO (13:53)
[2019-09-18] MEDS ORDERED: METR-111 PO (13:53)
[2019-09-18] MEDS ORDERED: HYDR-3165 PO (13:53)
== END 2019-09-18 14:01 | disposition home or self-care (01) ==
LOC: ER 12:08
DX: O99.612 Diseases of the digestive system complicating pregnancy, second trimester (principal); K37 Unspecified appendicitis; O99.332 Smoking (tobacco) complicating pregnancy, second trimester; Z3A.14 14 weeks gestation of pregnancy; Z88.1 Allergy status to other antibiotic agents; Z88.6 Allergy status to analgesic agent
CPT/HCPCS: 36415; 76805; 80053; 81001; 84702; 85025; 87086; 99284-25; J7030

== ENCOUNTER 2020-05-11 07:42 | Emergency (ER) | payer OTHER ==
[~2020-05-11] VITALS: Ht 162.6 cm; Wt 81.4 kg
[~2020-05-11 07:42] MED LIST changes: +AMOX1TAB61 PO; +METR-111 PO
--- NOTE | 2020-05-11 07:47 | PHYS DOC ---
Past History Past Medical History: GERD Past Surgical History: Appendectomy, Tubal ligation Additional Past Surgical Histo: D&C Smoking: Less than 1pk/day Alcohol Use: None Drug Use: Marijuana Adult General HPI HPI Patient is a 44-year-old female who presents for epigastric pain. This is an acute on chronic process. Patient reports suffering epigastric pain, metallic tasting reflux and nausea with rare episodes of nonbloody nonbilious emesis that started in February after giving . Patient has seen her primary care physician who started her on " a small green pill that I take before every meal" (Carafate?). Patient reports this is provided mild relief in her symptoms. Patient reports eating foods specifically fatty or spicy foods make worse. Symptoms are not present until after p.o. intake. Patient reports ongoing symptoms and tried to schedule appointment with her physician; however, given current pandemic and holidays she cannot be seen until May 2020. She is currently pending outpatient GI referral for suspect hiatal hernia and intractable GERD but has not heard anything regarding this referral process yet. She is here today for evaluation and further management. Denies any fever, no headache, chest pain, shortness of breath, abdominal pain, changes in bladder or bowel function, no known COVID-19 contact. Review of Systems Review of Systems Fourteen body systems of review of systems have been reviewed. See HPI for pertinent positives and negative responses, other wilcox all other systems are negative, non-pertinent or non-contributory Allergies Allergies Allergies Coded Allergies Type Severity Reaction Last Updated Verified doxycycline Allergy Severe Hives 07/25/19 Yes aspirin Allergy Intermediate hives 07/25/19 Yes ibuprofen Allergy Intermediate hives 07/25/19 Yes Physical Exam Physical Exam Constitutional: Pt is oriented to person, place, and time. Pt appears well-developed and well- nourished. HEENT: Head: Normocephalic and atraumatic. TMs clear, no hemotympanum Conjunctivae and EOM are normal. Pupils are equal, round, and reactive to light. Oropharynx is clear and moist. No hematomas or lacerations or abrasions to face or scalp OP clear, no blood, no malocclusion, dentition intact Nares clear, no nasal septal hematoma Midface stable Neck: C-spine midline nontender, no step-offs Cardiovascular: Normal rate, regular rhythm and normal heart sounds. Pulmonary/Chest: Effort normal and breath sounds normal. No respiratory distress. No wheezes. CTA bilaterally Abdominal: Soft. Bowel sounds are normal. Pt exhibits no distension. There is no tenderness. Musculoskeletal: No bony tenderness to extremities, no deformities, full ROM extremities Chest wall stable Pelvis stable and non-tender No vertebral TTP and spine without stepoffs Neurological: Pt is alert and oriented to person, place, and time. Moving all extremities willfully, able to wiggle all fingers and toes Alert and oriented x 3 Sensation grossly intact Skin: Skin is warm and dry. No abrasions, no lacerations Psychiatric: Behavior is appropriate for situation Current Patient Data Vital Signs Vital Signs Date Time Temp Pulse Resp B/P (MAP) Pulse Ox O2 Delivery O2 Flow Rate FiO2 05/11/20 08:25 76 18 97/69 (78) 97 Room Air 05/11/20 07:45 98.3 Lab Results Laboratory Tests Test 05/11/20 08:30 05/11/20 08:41 White Blood Count 8.2 x10^3/uL (4.0-11.0) Red Blood Count 4.31 x10^6/uL (3.50-5.40) Hemoglobin 13.3 g/dL (12.0-15.5) Hematocrit 39.5 % (36.0-47.0) Mean Corpuscular Volume 92 fL (79-100) Mean Corpuscular Hemoglobin 31 pg (25-35) Mean Corpuscular Hemoglobin Concent 34 g/dL (31-37) Red Cell Distribution Width 13.3 % (11.5-14.5) Platelet Count 322 x10^3/uL (140-400) Neutrophils (%) (Auto) 63 % (31-73) Lymphocytes (%) (Auto) 27 % (24-48) Monocytes (%) (Auto) 9 % (0-9) Eosinophils (%) (Auto) 1 % (0-3) Basophils (%) (Auto) 1 % (0-3) Neutrophils # (Auto) 5.1 x10^3uL (1.8-7.7) Lymphocytes # (Auto) 2.2 x10^3/uL (1.0-4.8) Monocytes # (Auto) 0.7 x10^3/uL (0.0-1.1) Eosinophils # (Auto) 0.1 x10^3/uL (0.0-0.7) Basophils # (Auto) 0.0 x10^3/uL (0.0-0.2) Sodium Level 137 mmol/L (136-145) Potassium Level 3.9 mmol/L (3.5-5.1) Chloride Level 103 mmol/L (98-107) Carbon Dioxide Level 23 mmol/L (21-32) Anion Gap 11 (6-14) Blood Urea Nitrogen 12 mg/dL (7-20) Creatinine 1.0 mg/dL (0.6-1.0) Estimated GFR (Cockcroft-Gault) 60.8 BUN/Creatinine Ratio 12 (6-20) Glucose Level 104 mg/dL (70-99) Calcium Level 8.7 mg/dL (8.5-10.1) Total Bilirubin 0.2 mg/dL (0.2-1.0) Aspartate Amino Transf (AST/SGOT) 13 U/L (15-37) Alanine Aminotransferase (ALT/SGPT) 23 U/L (14-59) Alkaline Phosphatase 66 U/L (46-116) Troponin I Quantitative < 0.017 ng/mL (0-0.055) Total Protein 7.2 g/dL (6.4-8.2) Albumin 3.6 g/dL (3.4-5.0) Albumin/Globulin Ratio 1.0 (1.0-1.7) Lipase 98 U/L (73-393) Bedside Urine HCG, Qualitative hcg negative (Negative) EKG EKG EKG ordered and interpreted by myself at 0819 hrs. as sinus rhythm at 87 bpm, unremarkable intervals, no axis deviation, no acute ischemic findings, no STEMI Radiology/Procedures Radiology/Procedures EXAM: Chest, single view. HISTORY: Epigastric pain. COMPARISON: 02/23/2018 FINDINGS: A frontal view of the chest is obtained. There is no infiltrate, pleural effusion or pneumothorax. The heart is normal in size. There are a few calcified granulomas. IMPRESSION: No acute pulmonary finding. Electronically signed by: Huong Olivas MD (05/11/2020 8:26 AM) [id number] Heart Score HEART Score for Chest Pain: HEART Score for Chest Pain Response (Comments) Value History Slighlty/Non-Suspicious 0 ECG Normal 0 Age < 45 0 Risk Factors 1 or 2 Risk Factors 1 Troponin < Normal Limit 0 Total 1 Risk Factors: Risk Factors: DM, Current or recent (<one month) smoker, HTN, HLP, family history of CAD, obesity. Risk Scores: Risk Factors: DM, Current or recent (<one month) smoker, HTN, HLP, family history of CAD, obesity. Course & Med Decision Making Course & Med Decision Making Pertinent Labs and Imaging studies reviewed. (See chart for details) Discussed with the patient all findings and diagnostic testing as well as the need to follow up with PCP for further evaluation and treatment or return to the ED if any new or worsening symptoms. Discussed little indication for further diagnostic work-up or intervention in ER setting. Patient likely suffering from GERD in setting of suspected hiatal hernia, I agree for need for outpatient GI follow-up. I will be sending patient home with short-term PPI prescription in addition to Phenergan for as needed nausea. Strict return precautions were also discussed at length with good understanding by patient. Patient voiced understanding and agreement with the plan. Hemodynamically stable at time of disposition. Dragon Disclaimer Dragon Disclaimer This electronic medical record was generated, in whole or in part, using a voice recognition dictation system. Departure Departure: Impression: Primary Impression: Nausea & vomiting Additional Impression: GERD (gastroesophageal reflux disease) Disposition: 01 DC HOME SELF CARE/HOMELESS Condition: IMPROVED Referrals: PCPRUY (PCP) Patient Instructions: Diet for Gastroesophageal Reflux Disease, Adult, Gastroesophageal Reflux Disease, Adult Additional Instructions: You were seen for abdominal pain. We are putting you on a medication to reduce your stomach acid levels. You should avoid alcohol, spicy foods, or NSAIDs as these can exacerbate your symptoms. You should follow up with the medicine clinic or your primary medical doctor for further evaluation and treatment. I would encourage you to continue pursuing outpatient GI follow-up. Return to the ED if you develop worsening pain, fever, black or bloody stools, or any other new or concerning symptoms. The medicine we started you on can take a few days to work fully. Scripts Promethazine Hcl (PROMETHAZINE HCL) 12.5 Mg Tablet 1 TAB PO Q6-8HRS for NAUSEA for 5 Days, #20 TAB 0 Refills Prov: ABIODUN ALEXANDER DO 05/11/20 Pantoprazole Sodium (PROTONIX) 40 Mg Tablet. 1 TAB PO DAILY for GERD, #30 TAB 5 Refills Prov: ABIODUN ALEXANDER DO 05/11/20 Problem Qualifiers ABIODUN ALEXANDER DO May 11, 2020 07:47
[2020-05-11] MEDS ORDERED: PANTOPRAZOLE 40 MG TABLET. PO ONE (08:15)
--- NOTE | 2020-05-11 08:28 | RAD ---
EXAM: Chest, single view. HISTORY: Epigastric pain. COMPARISON: 02/23/2018 FINDINGS: A frontal view of the chest is obtained. There is no infiltrate, pleural effusion or pneumo thorax. The heart is normal in size. There are a few calcified granulomas. IMPRESSION: No acute pulmonary finding. Electronically signed by: Huong Olivas MD (05/11/2020 8:26 AM) [id number]
[2020-05-11] MEDS ORDERED: IV NORMAL SALINE 1,000ML 1,000 ML IV ONE (08:45)
[2020-05-11 08:57] LABS: BASO % 1 % (0-3); EOS # 0.1 x10^3/uL (0.0-0.7); EOS % 1 % (0-3); HEMATOCRIT 39.5 % (36.0-47.0); HEMOGLOBIN 13.3 g/dL (12.0-15.5); LYMPH # 2.2 x10^3/uL (1.0-4.8); LYMPH % 27 % (24-48); MEAN CORPUSCULAR HEMOGLOBIN 31 pg (25-35); MEAN CORPUSCULAR HGB CONC 34 g/dL (31-37); MEAN CORPUSCULAR VOLUME 92 fL (79-100); MONO # 0.7 x10^3/uL (0.0-1.1); MONO % 9 % (0-9); NEUT # 5.1 x10^3uL (1.8-7.7); NEUT % 63 % (31-73); PLATELET COUNT 322 x10^3/uL (140-400); RED BLOOD COUNT 4.31 x10^6/uL (3.50-5.40); RED CELL DISTRIBUTION WIDTH 13.3 % (11.5-14.5); WHITE BLOOD COUNT 8.2 x10^3/uL (4.0-11.0)
[2020-05-11 09:04] LABS: CALCIUM 8.7 mg/dL (8.5-10.1); GFR 60.8; POTASSIUM 3.9 mmol/L (3.5-5.1)
[2020-05-11 09:10] LABS: ALBUMIN 3.6 g/dL (3.4-5.0); TOTAL BILIRUBIN 0.2 mg/dL (0.2-1.0); TOTAL PROTEIN 7.2 g/dL (6.4-8.2)
[2020-05-11] MEDS ORDERED: PROM12.58 PO (09:32)
[2020-05-11] MEDS ORDERED: PANT40TA3 PO (09:32)
[2020-05-11 09:53] VITALS: BP 104/76
--- NOTE | 2020-05-11 13:02 | EKG ---
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
== END 2020-05-11 10:00 | disposition home or self-care (01) ==
LOC: ER 07:42
DX: K21.9 Gastro-esophageal reflux disease without esophagitis (principal); R11.2 Nausea with vomiting, unspecified; F17.200 Nicotine dependence, unspecified, uncomplicated; Z90.89 Acquired absence of other organs; Z98.51 Tubal ligation status; Z88.1 Allergy status to other antibiotic agents; Z88.6 Allergy status to analgesic agent; Z88.8 Allergy status to other drugs, medicaments and biological substances
CPT/HCPCS: 36415; 71045; 80053; 81025; 83690; 84484; 85025; 93005; 96360; 99285; J7030

== ENCOUNTER 2020-12-07 13:14 | Emergency (ER) | payer OTHER ==
[~2020-12-07] VITALS: Ht 162.6 cm; Wt 79.1 kg
[~2020-12-07 13:14] MED LIST changes: +PANT40TA3 PO; +PROM12.58 PO
--- NOTE | 2020-12-07 13:49 | PHYS DOC ---
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 Patient states the diarrhea and vomiting has subsided. Patient is also complaining of sore throat since Sunday. Denies any fever denies any chest pain. (DES MILAN Rory INDUSTRIAL ENGINEERING PROFESSOR) Review of Systems Review of Systems Constitutional: Denies fever or chills [] Eyes: Denies change in visual acuity, redness, or eye pain [] HENT: Reports sore throat. Denies nasal congestion Respiratory: Denies cough or shortness of breath [] Cardiovascular: No additional information not addressed in HPI [] GI: Reports diarrhea and vomiting which have subsided. Denies abdominal pain, bloody stools : Denies dysuria or hematuria [] Musculoskeletal: Denies back pain or joint pain [] Integument: Denies rash or skin lesions [] Neurologic: Reports headache, denies focal weakness or sensory changes [] All other systems were reviewed and found to be within normal limits, except as documented in this note. (DES MILAN Rory INDUSTRIAL ENGINEERING PROFESSOR) Allergies Allergies Allergies Coded Allergies Type Severity Reaction Last Updated Verified doxycycline Allergy Severe Hives 12/07/20 Yes aspirin Allergy Intermediate hives 12/07/20 Yes ibuprofen Allergy Intermediate hives 12/07/20 Yes (KAYLIDES Rory INDUSTRIAL ENGINEERING PROFESSOR) Physical Exam Physical Exam Constitutional: Well developed, well nourished, no acute distress, non-toxic appearance. [] HENT: Normocephalic, atraumatic, bilateral external ears normal, oropharynx moist, no oral exudates, nose normal. [] Eyes: PERRLA, EOMI, conjunctiva normal, no discharge. [] Neck: Normal range of motion, no tenderness, supple, no stridor. [] Cardiovascular:Heart rate regular rhythm, no murmur [] Lungs & Thorax: Bilateral breath sounds clear to auscultation [] Abdomen: Bowel sounds normal, soft, no tenderness, no masses, no pulsatile masses. [] Skin: Warm, dry, no erythema, no rash. [] Back: No tenderness, no CVA tenderness. [] Extremities: No tenderness, no cyanosis, no clubbing, ROM intact, no edema. [] Neurologic: Alert and oriented X 3, normal motor function, normal sensory function, no focal deficits noted. [] Psychologic: Affect normal, judgement normal, mood normal. [] (DES MILAN APRN) Current Patient Data Vital Signs Vital Signs Date Time Temp Pulse Resp B/P (MAP) Pulse Ox O2 Delivery O2 Flow Rate FiO2 12/07/20 13:20 97.9 93 18 131/64 98 Room Air (DES MILAN APRN) EKG EKG [] (DES MILAN APRN) Radiology/Procedures Radiology/Procedures []PROCEDURE: CHEST AP ONLY EXAM: Chest, single view. HISTORY: Cough. COMPARISON: 05/11/2020 FINDINGS: A frontal view of the chest is obtained. There is no infiltrate, pleural effusion or pneumothorax. The heart is normal in size. There are calcified granulomas. IMPRESSION: No acute pulmonary finding. Electronically signed by: Huong Castellano MD (12/07/2020 2:01 PM) [id number] DICTATED AND SIGNED BY: HUONG CASTELLANO MD DATE: 12/07/20 1400 CC: DES MILAN APRN; PCP,NO ~MTH0 0 (DES MILAN APRN) Heart Score C/O Chest Pain: N/A Risk Factors: Risk Factors: DM, Current or recent (<one month) smoker, HTN, HLP, family history of CAD, obesity. Risk Scores: Risk Factors: DM, Current or recent (<one month) smoker, HTN, HLP, family history of CAD, obesity. (DES MILAN APRN) Course & Med Decision Making Course & Med Decision Making Pertinent Labs and Imaging studies reviewed. (See chart for details) This is a 45-year-old female patient presented to the ED today complaining of headache, sore throat, cough, shortness of breath, diarrhea and vomiting, symptoms began on Sunday. The diarrhea and vomiting have subsided. The rest of the symptoms are still present. Patient states she will not to do a Covid test because she believes it is not Covid. She did not get Covid vaccine either. Chest x-ray interpreted by radiologist as negative for any acute findings. Discharge to home. Follow-up with PCP. (DES MILAN PAULETTE) Dragon Disclaimer Dragon Disclaimer This electronic medical record was generated, in whole or in part, using a voice recognition dictation system. (DES MILAN PAULETTE) Departure Departure: Impression: Primary Impression: Cough Additional Impressions: Pharyngitis, acute Shortness of breath Headache Disposition: HOME / SELF CARE / HOMELESS Condition: STABLE Referrals: PCP,NO (PCP) Follow-up with your doctor in 1 week Patient Instructions: Cough, Adult, [id number], Headache, FAQs, Shortness of Breath Additional Instructions: You were evaluated in the emergency room, your chest x-ray is negative for any acute findings. Take the prescribed medications as needed. Please follow-up with your primary care doctor in 1 to 2 weeks. Push fluids, rest, maintain good hand hygiene. Scripts Albuterol Sulfate (PROAIR HFA INHALER) 8.5 Gm Hfa.aer.ad 2 PUFF IH PRN Q4-6HRS PRN for wheezing for 21 Days, #1 INHALER 0 Refills Prov: DES MILAN PAULETTE 12/07/20 Prednisone (PREDNISONE) 50 Mg Tablet 1 TAB PO DAILY, #5 TAB Prov: DES MILAN PAULETTE 12/07/20 Benzonatate (TESSALON PERLE) 100 Mg Capsule 1 CAP PO TID, #30 CAP Prov: DES MILAN PAULETTE 12/07/20 Attending Signature Attending Signature I have reviewed the PA/GYNECOLOGY TEACHER's note and plan of care. I was available for consultation as needed during the patient's visit in the emergency department. I agree with the clinical impression, plan, and disposition. (LEE PAREKH DO) Problem Qualifiers Additional Impressions: Pharyngitis, acute Pharyngitis/tonsillitis etiology: unspecified etiology Qualified Codes: J02.9 - Acute pharyngitis, unspecified Headache Headache type: unspecified Headache chronicity pattern: unspecified pattern Intractability: not intractable Qualified Codes: R51.9 - Headache, unspecified MUTUNGA,DES Valadez APRN Dec 07, 2020 13:49 LEE PAREKH DO Dec 07, 2020 20:18
--- NOTE | 2020-12-07 14:03 | RAD ---
EXAM: Chest, single view. HISTORY: Cough. COMPARISON: 05/11/2020 FINDINGS: A frontal view of the chest is obtained. There is no infiltrate, pleural effusion or pneumo thorax. The heart is normal in size. There are calcified granulomas. IMPRESSION: No acute pulmonary finding. Electronically signed by: Huong Olivas MD (12/07/2020 2:01 PM) [id number]
[2020-12-07] MEDS ORDERED: predniSONE 20 MG TABLET PO ONE (14:30)
[2020-12-07] MEDS ORDERED: BENZONATATE 100 MG CAPSULE. PO ONE (14:30)
[2020-12-07] MEDS ORDERED: PRED50TA PO (14:40)
[2020-12-07] MEDS ORDERED: ALBU2.5V8 IH (14:40)
[2020-12-07] MEDS ORDERED: BENZ100C PO (14:40)
[2020-12-07 14:50] VITALS: BP 143/89
== END 2020-12-07 15:01 | disposition home or self-care (01) ==
LOC: ER 13:14
DX: J02.9 Acute pharyngitis, unspecified (principal); R51.9 Headache, unspecified; R19.7 Diarrhea, unspecified; R11.2 Nausea with vomiting, unspecified; K21.9 Gastro-esophageal reflux disease without esophagitis; F17.200 Nicotine dependence, unspecified, uncomplicated; Z90.89 Acquired absence of other organs; Z98.51 Tubal ligation status; Z88.1 Allergy status to other antibiotic agents; Z88.6 Allergy status to analgesic agent
CPT/HCPCS: 71045; 99283; J7512

== ENCOUNTER 2021-05-24 07:33 | Emergency (ER) | payer OTHER ==
[~2021-05-24] VITALS: Ht 165.1 cm; Wt 77.0 kg
[~2021-05-24 07:33] MED LIST changes: +ALBU2.5V8 IH
[2021-05-24 07:40] VITALS: BP 143/89
--- NOTE | 2021-05-24 08:13 | PHYS DOC ---
Past History Past Medical History: GERD Additional Past Medical Histor: POSS HIATAL HERNIA Past Surgical History: Appendectomy, Tubal ligation Additional Past Surgical Histo: D&C Smoking: Less than 1pk/day Alcohol Use: None Drug Use: Marijuana General Adult EDM: Chief Complaint: FLU SYMPTOM HPI: HPI: 46-year-old female presents with cough, congestion, sore throat, body aches, headache. She said the symptoms for 2 days. She is worried about Covid. She is not vaccinated against COVID-19. She has never tested positive for COVID-19. She denies fever or chills. Review of Systems: Review of Systems: Constitutional: Denies fever or chills Eyes: Denies change in visual acuity HENT: Congestion, sore throat Respiratory: Cough without shortness of breath Cardiovascular: Denies chest pain or edema GI: Denies abdominal pain, nausea, vomiting, bloody stools or diarrhea : Denies dysuria Musculoskeletal: Denies back pain or joint pain Integument: Denies rash Neurologic: Headache. Denies focal weakness or sensory changes Endocrine: Denies polyuria or polydipsia Lymphatic: Denies swollen glands Psychiatric: Denies depression or anxiety Allergies: Allergies: Allergies Coded Allergies Type Severity Reaction Last Updated Verified doxycycline Allergy Severe Hives 05/24/21 Yes aspirin Allergy Intermediate hives 05/24/21 Yes ibuprofen Allergy Intermediate hives 05/24/21 Yes Physical Exam: PE: Constitutional: Well developed, well nourished, no acute distress, non-toxic appearance. [] HENT: Normocephalic, atraumatic, bilateral external ears normal, oropharynx mo ist, no tonsillar exudates, nose congested. [] Eyes: PERRLA, EOMI, conjunctiva normal, no discharge. [] Neck: Normal range of motion, no tenderness, supple, no stridor. [] Cardiovascular: Heart rate regular rhythm, no murmur [] Lungs & Thorax: Bilateral breath sounds clear to auscultation [] Abdomen: Bowel sounds normal, soft, no tenderness, no masses, no pulsatile masses. [] Skin: Warm, dry, no erythema, no rash. [] Back: No tenderness, no CVA tenderness. [] Extremities: No tenderness, no cyanosis, no clubbing, ROM intact, no edema. [] Neurologic: Alert and oriented X 3, normal motor function, normal sensory function, no focal deficits noted. [] Psychologic: Affect normal, judgement normal, mood normal. [] Current Patient Data: Vital Signs: Vital Signs Date Time Temp Pulse Resp B/P (MAP) Pulse Ox O2 Delivery O2 Flow Rate FiO2 05/24/21 07:40 97.5 90 22 143/89 (107) 97 Room Air EKG: EKG: [] Radiology/Procedures: Radiology/Procedures: [] Heart Score: C/O Chest Pain: N/A Risk Factors: Risk Factors: DM, Current or recent (<one month) smoker, HTN, HLP, family history of CAD, obesity. Risk Scores: Score 0 - 3: 2.5% MACE over next 6 weeks - Discharge Home Score 4 - 6: 20.3% MACE over next 6 weeks - Admit for Clinical Observation Score 7 - 10: 72.7% MACE over next 6 weeks - Early Invasive Strategies Course & Med Decision Making: Course & Med Decision Making Pertinent Labs and Imaging studies reviewed. (See chart for details) The patient likely has COVID-19 or another viral illness. I have advised supportive care and isolation at home. Test results are pending. She is stable for discharge at this time. [] Dragon Disclaimer: Dragon Disclaimer: This electronic medical record was generated, in whole or in part, using a voice recognition dictation system. Departure Departure: Impression: Primary Impression: Viral URI with cough Disposition: HOME / SELF CARE / HOMELESS Condition: STABLE Referrals: CINDY MORALES MD (PCP) Patient Instructions: Viral Syndrome MELISSA MONTAGUE DO May 24, 2021 08:13
[2021-05-24 08:30] LABS: INFLUENZA A PATIENT NEGATIVE (NEGATIVE); INFLUENZA B PATIENT NEGATIVE (NEGATIVE)
== END 2021-05-24 08:40 | disposition home or self-care (01) ==
LOC: ER 07:33
DX: J06.9 Acute upper respiratory infection, unspecified (principal); K21.9 Gastro-esophageal reflux disease without esophagitis; F17.200 Nicotine dependence, unspecified, uncomplicated; Z20.822 Contact with and (suspected) exposure to COVID-19; Z88.1 Allergy status to other antibiotic agents; Z88.6 Allergy status to analgesic agent; Z88.8 Allergy status to other drugs, medicaments and biological substances
CPT/HCPCS: 87804; 99283; C9803; U0003

== ENCOUNTER 2021-07-04 15:06 | Emergency (ER) | payer OTHER ==
[~2021-07-04] VITALS: Ht 165.1 cm; Wt 74.5 kg
[2021-07-04] MEDS ORDERED: ONDANSETRON ODT 4 MG TAB.RAPDIS PO ONE (16:45)
[2021-07-04] MEDS ORDERED: diphenhydrAMINE HCL 25 MG CAPSULE PO ONE (17:00)
[2021-07-04] MEDS ORDERED: METOCLOPRAMIDE HCL 10 MG/2 ML VIAL. IM ONE (17:00)
[2021-07-04] MEDS ORDERED: DEXAMETHASONE 4 MG TABLET PO ONE (17:00)
--- NOTE | 2021-07-04 17:05 | PHYS DOC ---
Past History Past Medical History: GERD Additional Past Medical Histor: POSS HIATAL HERNIA Past Surgical History: Appendectomy, Tubal ligation Additional Past Surgical Histo: D&C Smoking: Less than 1pk/day Alcohol Use: None Drug Use: Marijuana General Adult EDM: Chief Complaint: NAUSEA/VOMITING/DIARRHEA HPI: HPI: 46 yo F no significant past medical history, presents the ED with complaints of nausea, vomiting, loose watery diarrhea, sore throat, dry cough, congestion, body aches, and gradual onset headache that started around 3 AM last night stating "I just feel miserable." Is not vaccinated for COVID. No tobacco use or underlying lung disease. Reports headache is not the worst headache of her life. History of tubal ligation. Denies any alcohol or drug use. Review of Systems: Review of Systems: Constitutional: Denies fever or chills Eyes: Denies change in visual acuity HENT: Denies rhinorrhea or nasal flaring Respiratory: Denies hemoptysis or dyspnea Cardiovascular: Denies chest pain or edema GI: Denies bowel pain, melena or hematochezia : Denies dysuria or vaginal bleeding Musculoskeletal: Denies back pain or joint pain Integument: Denies rash or diaphoresis Neurologic: Denies headache, neck stiffness, focal weakness or sensory changes Endocrine: Denies polyuria or polydipsia Lymphatic: Denies swollen glands Psychiatric: Denies depression or anxiety Current Medications: Current Meds: Current Medications Medications (Trade) Dose Ordered Sig/Luis Manuel Start Time Stop Time Status Last Admin Dose Admin Dexamethasone (Decadron) 10 mg 1X ONCE 07/04/21 17:00 07/04/21 17:01 DC Diphenhydramine HCl (Benadryl) 25 mg 1X ONCE 07/04/21 17:00 07/04/21 17:01 DC Metoclopramide HCl (Reglan Vial) 10 mg 1X ONCE 07/04/21 17:00 07/04/21 17:01 DC Ondansetron HCl (Zofran Odt) 4 mg 1X ONCE 07/04/21 16:45 07/04/21 16:48 DC Allergies: Allergies: Allergies Coded Allergies Type Severity Reaction Last Updated Verified doxycycline Allergy Severe Hives 07/04/21 Yes aspirin Allergy Intermediate hives 07/04/21 Yes ibuprofen Allergy Intermediate hives 07/04/21 Yes Physical Exam: PE: Constitutional: Flu appearing but non-toxic appearance. HENT: Normocephalic, atraumatic, mild pharyngeal erythema with no exudates, oropharynx pain Eyes: EOMI, conjunctiva normal, no discharge. Neck: Normal range of motion, supple, no nuchal rigidity Cardiovascular: S1/2 present, regular rhythm Lungs & Thorax: Speaking in full sentences, bilateral equal chest rise, no tachypnea or increased work of breathing Skin: Warm, dry, no erythema, no rash. [] Extremities: No tenderness, no cyanosis, Neurologic: Alert and oriented X 3, normal motor function, normal sensory functi on, no focal deficits noted. [] Psychologic: Affect normal, judgement normal, mood normal. [] Current Patient Data: Vital Signs: Vital Signs Date Time Temp Pulse Resp B/P (MAP) Pulse Ox O2 Delivery O2 Flow Rate FiO2 07/04/21 16:40 97.9 90 18 139/82 (101) 97 Room Air EKG: EKG: [] Radiology/Procedures: Radiology/Procedures: [] Heart Score: C/O Chest Pain: No Risk Factors: Risk Factors: DM, Current or recent (<one month) smoker, HTN, HLP, family history of CAD, obesity. Risk Scores: Score 0 - 3: 2.5% MACE over next 6 weeks - Discharge Home Score 4 - 6: 20.3% MACE over next 6 weeks - Admit for Clinical Observation Score 7 - 10: 72.7% MACE over next 6 weeks - Early Invasive Strategies Course & Med Decision Making: Course & Med Decision Making Pertinent Labs and Imaging studies reviewed. (See chart for details) COVID-19 CRITERIA: The patient was evaluated during the global COVID-19 pandemic, and that diagnosis was suspected/considered upon their initial presentation. Their evaluation, treatment and testing was consistent with current guidelines for patients who present with complaints or symptoms that may be related to COVID-19. Concern for nausea, vomiting, diarrhea and URI symptoms of less than 24 hours, suspect viral process. But strep negative. Patient hemodynamically stable and symptoms improved with analgesia and migraine cocktail. Will discharge home with strict ED return precautions were given for chest pain, increased work of breathing, fever or neck stiffness. Encouraged urgent outpatient follow-up with PMD for routine care. Life-threatening processes were considered but are low suspicion at this time, given history, physical exam and ED workup. Pt was educated on all prescription medications and adverse effects. All patient's questions were answered and pt was stable at time of discharge. Life/limb-threatening differential includes but is not limited to, airway emerge ncy or respiratory distress/ARDS or fatigue or head or neck swelling, toxidrome, sepsis/shock, angioedema, anaphylaxis, congestive heart failure, myocarditis, acute myocardial infarction, dysrhythmias, cardiomyopathy, venous thromboembolism, pulmonary emboli, acute necrotizing hemorrhagic encephalopathy ,cerebral venous thrombosis, meningitis, encephalitis or CVA. I have spoken with the patient and/or caregivers. I explained the patient's condition, diagnoses and treatment plan based on the information available to me at this time. I have answered the patient and/or caregiver's questions and addressed any concerns. The patient and/or caregivers have a good understanding of patient's diagnosis, condition and treatment plan as can be expected at this point. Vital signs have been stable. Patient's condition is stable and appropriate for discharge from the emergency department. Patient will pursue further outpatient evaluation with primary care physician or other designated or consulting physician as outlined in the discharge instructions. The patient and/or caregivers are agreeable to this plan of care and follow-up instructions have been explained in detail. The patient and/or caregivers have received these instructions in written form and have expressed an understanding of the discharge instructions. The patient and/or caregivers are aware that any significant change of condition or worsening of symptoms should prompt immediate return to this or the closest emergency department or call to 911. Radha Disclaimer: Radha Disclaimer: This electronic medical record was generated, in whole or in part, using a voice recognition dictation system. Departure Departure: Impression: Primary Impression: Person under investigation for COVID-19 Additional Impressions: Nausea vomiting and diarrhea Headache Disposition: HOME / SELF CARE / HOMELESS Condition: STABLE Referrals: CINDY MORALES MD (PCP) Follow-up with your primary care physician in 24 to 48 hours OR FOLLOW UP WITH FAMILY MEDICINE: [address], [address] [place] [address] Patient Instructions: Headache, FAQs, Nausea and Vomiting, Upper Respiratory Infection, Adult Additional Instructions: EMERGENCY DEPARTMENT GENERAL DISCHARGE INSTRUCTIONS Thank you for coming to [facility] (ED) today and trusting us with you care. We trust that you had a positivie experience in our Emergency Department. If you wish to speak to the department management, you may call the director at [phone]. YOUR FOLLOW UP INSTRUCTIONS ARE FOLLOWS: 1. Do you have a private Doctor? If you do not have a private doctor, please ask for a resource list of physicians or clinics that may be able to assist you with follow up care. 2. The Emergency Physician has interpreted your x-rays. The X-Ray specialist will also review them. If there is a change in the findings, you will be notified in 48 hours when at all possible. 3. A lab test or culture has been done, your results will be reviewed and you will be notified if you need a change in treatment. ADDITIONAL INSTRUCTIONS AND INFORMATION: 1. Your care today has been supervised by a physician who is specially trained in emergency care. Many problems require more than one evaluation for a complete diagnosis and treatment. We recommend that you schedule your follow up appointment as recommended to ensure complete treatment of you illness or injury. If you are unable to obtain follow up care and continue to have a problem, or if your condition worsens, we recommend that you return to the ED. 2. We are not able to safely determine your condition over the phone nor are we able to give sound medical advice over the phone. For these safety reasons, if you call for medical advice we will ask you to come to the ED for further evaluation. 3. If you have any questions regarding these discharge instructions please call the ED at [phone]. SAFETY INFORMATION: In the interest of safety, wellness, and injury prevention; we encourage you to wear your sealbelt, if you smoke; quite smoking, and we encourage family to use a protective helmet for bicycling and other sporting events that present an increased risk for head injury. IF YOUR SYMPTOMS WORSEN OR NEW SYMPTOMS DEVELOP, OR YOU HAVE CONCERNS ABOUT YOUR CONDITION; OR IF YOUR CONDITION WORSENS WHILE YOU ARE WAITING FOR YOUR FOLLOW UP APPOINTMENT; EITHER CONTACT YOUR PRIMARY CARE DOCTOR, THE PHYSICIAN WHOSE NAME AND NUMBER YOU WERE GIVEN, OR RETURN TO THE ED IMMEDIATELY. Scripts Ondansetron (ONDANSETRON ODT) 4 Mg Tab.rapdis 4 MG PO Q6HRS for Nausea/Vomiting, #15 TAB Prov: VALERIO MISHRA DO 07/04/21 VALERIO MISHRA DO Jul 04, 2021 17:05
[2021-07-04] MEDS ORDERED: ONDA4TAB12 PO (17:56)
[2021-07-04 18:00] VITALS: BP 135/80
[2021-07-04 18:14] LABS: INFLUENZA A PATIENT NEGATIVE (NEGATIVE); INFLUENZA B PATIENT NEGATIVE (NEGATIVE)
== END 2021-07-04 18:30 | disposition home or self-care (01) ==
LOC: ER 15:06
DX: R11.2 Nausea with vomiting, unspecified (principal); R19.7 Diarrhea, unspecified; R51.9 Headache, unspecified; K21.9 Gastro-esophageal reflux disease without esophagitis; F17.200 Nicotine dependence, unspecified, uncomplicated; Z20.822 Contact with and (suspected) exposure to COVID-19; Z88.1 Allergy status to other antibiotic agents; Z88.6 Allergy status to analgesic agent
CPT/HCPCS: 87070; 87428; 87880; 96372; 99284; C9803; J2765; J8540; Q0162; Q0163; U0003